=== PATIENT | female | born 1985 | race Caucasian/White ===

== ENCOUNTER 2021-02-16 05:40 | Inpatient (IN) ==
[2021-02-16] MEDS ORDERED: Artificial Tears SOLN 15 ML BOTTLE BOTH EYES PRN ×2 (10:41→12:15)
[2021-02-16] MEDS: Dexmedetomidine HCl 400 MCG/100 ML MLS IVC SCH ×3 (10:59→21:43)
[2021-02-16] MEDS: FentaNYL (PF) 1,000 MCG/100 ML IV.SOLN IVC SCH ×2 (10:59→19:22)
[2021-02-16] MEDS ORDERED: Perflutren Lipid Microsphere 1.3 ML in 0.9 % Sodium Chloride 8.7 ML IVP PRN (12:15)
[2021-02-16] MEDS ORDERED: Naloxone 0.4 MG/ML INJ IVP PRN (12:15)
[2021-02-16] MEDS ORDERED: Albuterol 2.5 MG/3 ML NEBULIZER IH PRN (12:23)
[2021-02-16 12:26] LABS: ABG Base Excess 2 mEq/L (-2 to 3); ABG HCO3 29 mEq/L (21-27); ABG Oxygen Saturation 96 % (95-98); ABG PCO2 57 mmHg (35-45); ABG PH 7.32 pH Units (7.32-7.45); ABG PO2 89 mmHg (85-104); ABG TCO2 31 mEq/L (20-26); Blood Gas VT 450 cc
[2021-02-16] MEDS: Artificial Tears SOLN 15 ML BOTTLE BOTH EYES SCH ×7 (13:31→23:39)
[2021-02-16 13:49] LABS: Basophils % 0.2 %; Eosinophils % 0.1 %; Hematocrit 39.9 % (35.3-44.9); Hemoglobin 13.3 g/dL (11.5-15.4); Immature Granulocytes % 0.4 % (0-4); Lymphocytes # 1.7 K/mcL (0.6-4.6); Lymphocytes % 10.3 %; Mean Corpuscular HGB Conc 33.3 g/dL (31.6-35.5); Mean Corpuscular Hemoglobin 30.6 pg (28.0-33.3); Mean Corpuscular Volume 91.9 fL (83.0-100.0); Mean Platelet Volume 9.5 fL (9.4-12.4); Monocytes # 1.3 K/mcL (0.0-1.3); Monocytes % 7.8 %; Neutrophils # 13.1 K/mcL (1.6-8.9); Platelet Count 245 K/mcL (140-400); Red Blood Count 4.34 M/mcL (3.82-4.97); Red Cell Distribution Width 12.7 % (11.5-14.5); Segmented Neutrophils % 81.2 %; White Blood Count 16.2 K/mcL (4.3-11.1)
[2021-02-16] MEDS: Norepinephrine 4 MG/254 ML IV.SOLN IVC SCH ×2 (14:13→23:39)
[2021-02-16 14:17] LABS: Alanine Aminotransferase 116 Units/L (7-52); Albumin 3.5 g/dL (3.5-5.7); Albumin/Globulin Ratio 1.5 (1.1-2.2); Alkaline Phosphatase 59 Units/L (34-104); Aspartate Amino Transferase 57 Units/L (13-39); BUN/Creatinine Ratio 17 (6-26); Bilirubin,Direct 0.3 mg/dL (0.0-0.2); Bilirubin,Indirect 0.5 mg/dL (0.0-1.0); Bilirubin,Total 0.8 mg/dL (0.3-1.0); Blood Urea Nitrogen 14 mg/dL (6-20); Calcium 7.9 mg/dL (8.6-10.3); Carbon Dioxide 26 mEq/L (23-29); Chloride 103 mEq/L (98-107); Globulin 2.4 g/dL (2.4-3.5); Glucose 177 mg/dL (70-105); Magnesium 1.7 mg/dL (1.6-2.6); Osmolality,Calculated 285 (280-300); Phosphorous 2.4 mg/dL (2.7-4.5); Sodium 135 mEq/L (136-145); Total Protein 5.9 g/dL (6.4-8.9); Troponin I < 0.03 ng/mL (< 0.04); eGFR For African Americans > 60 (> 60); eGFR For Non-African Americans > 60 (> 60)
[2021-02-16] MEDS ORDERED: *HR* Etomidate 20 MG/10 ML AMPUL IVP ONE (14:22)
[2021-02-16] MEDS ORDERED: *HR* Midazolam HCl 5 MG/5 ML VIAL IVP ONE (14:22)
[2021-02-16] MEDS: Ipratropium/Albuterol Neb 3 ML IH SCH ×3 (15:56→23:19)
[2021-02-16] MEDS: *HR* Heparin 5,000 UNIT/ML VIAL SQ SCH ×2 (16:14→23:38)
[2021-02-16] MEDS: Piperacillin/Tazobactam 3.375 GM in 0.9 % Sodium Chloride Mini Bag 100 ML IVPB SCH ×2 (16:14→23:38)
[2021-02-16] MEDS ORDERED: Vancomycin 2,000 MG/520 ML IV.SOLN IVPB ONE (17:00)
[2021-02-16] MEDS ORDERED: Dextrose Gel 15 GM/37.5 ML TUBE PO PRN ×2 (17:06)
[2021-02-16] MEDS ORDERED: *HR* Dextrose 50 % in Water (Syg) 50 ML SYRINGE IVP PRN (17:06)
[2021-02-16] MEDS ORDERED: D5% in Water 1,000 ML IVC PRN (17:06)
[2021-02-16] MEDS: Insulin LISPRO 300 UNITS/3 ML VIAL SUBQ SCH ×2 (18:34→23:40)
[2021-02-16] MEDS: Chlorhexidine Rinse 15 ML MOUTHWASH MM SCH ×2 (20:05→20:43)
[2021-02-17] MEDS: Dexmedetomidine HCl 400 MCG/100 ML MLS IVC SCH ×4 (02:49→22:01)
[2021-02-17] MEDS: FentaNYL (PF) 1,000 MCG/100 ML IV.SOLN IVC SCH ×2 (03:22→11:54)
[2021-02-17] MEDS: Artificial Tears SOLN 15 ML BOTTLE BOTH EYES SCH ×10 (03:24→23:25)
[2021-02-17 03:29] LABS: Basophils # 0.1 K/mcL (0.0-0.2); Basophils % 0.3 %; Eosinophils # 0.3 K/mcL (0.0-0.6); Eosinophils % 1.7 %; Hematocrit 38.9 % (35.3-44.9); Hemoglobin 13.1 g/dL (11.5-15.4); Immature Granulocytes % 0.4 % (0-4); Lymphocytes # 2.4 K/mcL (0.6-4.6); Lymphocytes % 15.8 %; Mean Corpuscular HGB Conc 33.7 g/dL (31.6-35.5); Mean Corpuscular Hemoglobin 30.5 pg (28.0-33.3); Mean Corpuscular Volume 90.5 fL (83.0-100.0); Mean Platelet Volume 9.4 fL (9.4-12.4); Monocytes # 1.6 K/mcL (0.0-1.3); Monocytes % 10.3 %; Neutrophils # 10.7 K/mcL (1.6-8.9); Platelet Count 254 K/mcL (140-400); Red Cell Distribution Width 12.9 % (11.5-14.5); Segmented Neutrophils % 71.5 %
[2021-02-17 03:47] LABS: Albumin 3.5 g/dL (3.5-5.7); Albumin/Globulin Ratio 1.4 (1.1-2.2); Bilirubin,Direct 0.6 mg/dL (0.0-0.2); Bilirubin,Indirect 0.6 mg/dL (0.0-1.0); Bilirubin,Total 1.2 mg/dL (0.3-1.0); Globulin 2.5 g/dL (2.4-3.5)
[2021-02-17] MEDS: Ipratropium/Albuterol Neb 3 ML IH SCH ×6 (03:48→23:43)
[2021-02-17 03:49] LABS: BUN/Creatinine Ratio 21 (6-26); Blood Urea Nitrogen 12 mg/dL (6-20); Calcium 8.1 mg/dL (8.6-10.3); Carbon Dioxide 28 mEq/L (23-29); Chloride 103 mEq/L (98-107); Glucose 165 mg/dL (70-105); Osmolality,Calculated 285 (280-300); Potassium 3.6 mEq/L (3.5-5.1); Sodium 136 mEq/L (136-145); eGFR For African Americans > 60 (> 60); eGFR For Non-African Americans > 60 (> 60)
[2021-02-17 03:50] LABS: Troponin I < 0.03 ng/mL (< 0.04)
[2021-02-17 04:05] LABS: ABG Base Excess 2 mEq/L (-2 to 3); ABG HCO3 28 mEq/L (21-27); ABG Oxygen Saturation 87 % (95-98); ABG PCO2 48 mmHg (35-45); ABG PH 7.38 pH Units (7.32-7.45); ABG PO2 55 mmHg (85-104); ABG TCO2 30 mEq/L (20-26); Blood Gas Modality ASSIST CONTROL; Blood Gas VT 450 cc
[2021-02-17] MEDS: Insulin LISPRO 300 UNITS/3 ML VIAL SUBQ SCH ×4 (04:58→23:35)
[2021-02-17] MEDS ORDERED: Vancomycin 1,750 MG/517.5 ML IV.SOLN IVPB SCH (05:00)
[2021-02-17] MEDS: Norepinephrine 4 MG/254 ML IV.SOLN IVC SCH ×3 (05:46→23:24)
[2021-02-17] MEDS: Acetaminophen 325 MG TABLET PO PRN (06:08)
[2021-02-17] MEDS: *HR* Heparin 5,000 UNIT/ML VIAL SQ SCH ×3 (08:01→23:29)
[2021-02-17] MEDS: Chlorhexidine Rinse 15 ML MOUTHWASH MM SCH ×3 (08:02→20:00)
[2021-02-17] MEDS: Piperacillin/Tazobactam 3.375 GM in 0.9 % Sodium Chloride Mini Bag 100 ML IVPB SCH ×3 (08:02→23:32)
[2021-02-17] MEDS: Pantoprazole 40 MG VIAL IVP SCH (08:03)
[2021-02-17] MEDS: Furosemide 40 MG/4 ML VIAL IVP SCH ×2 (14:36→20:00)
[2021-02-17] MEDS: Albumin 25% 25gram/100mL 25 GM/100 ML IV.SOLN IVPB SCH (17:29)
[2021-02-18] MEDS: FentaNYL (PF) 1,000 MCG/100 ML IV.SOLN IVC SCH ×4 (00:06→23:43)
[2021-02-18 03:37] LABS: Basophils % 0.4 %; Eosinophils # 0.3 K/mcL (0.0-0.6); Eosinophils % 3.1 %; Hematocrit 34.7 % (35.3-44.9); Hemoglobin 11.9 g/dL (11.5-15.4); Immature Granulocytes % 0.3 % (0-4); Lymphocytes # 2.5 K/mcL (0.6-4.6); Lymphocytes % 24.3 %; Mean Corpuscular HGB Conc 34.3 g/dL (31.6-35.5); Mean Corpuscular Hemoglobin 31.1 pg (28.0-33.3); Mean Corpuscular Volume 90.6 fL (83.0-100.0); Mean Platelet Volume 9.6 fL (9.4-12.4); Monocytes % 9.9 %; Neutrophils # 6.5 K/mcL (1.6-8.9); Platelet Count 212 K/mcL (140-400); Red Blood Count 3.83 M/mcL (3.82-4.97); Red Cell Distribution Width 12.7 % (11.5-14.5); White Blood Count 10.4 K/mcL (4.3-11.1)
[2021-02-18] MEDS: Artificial Tears SOLN 15 ML BOTTLE BOTH EYES SCH ×6 (03:38→23:54)
[2021-02-18] MEDS: Ipratropium/Albuterol Neb 3 ML IH SCH ×5 (03:58→20:08)
[2021-02-18 04:13] LABS: Alanine Aminotransferase 77 Units/L (7-52); Albumin 3.6 g/dL (3.5-5.7); Albumin/Globulin Ratio 1.4 (1.1-2.2); Alkaline Phosphatase 48 Units/L (34-104); Aspartate Amino Transferase 50 Units/L (13-39); BUN/Creatinine Ratio 18 (6-26); Bilirubin,Direct 0.8 mg/dL (0.0-0.2); Bilirubin,Indirect 0.7 mg/dL (0.0-1.0); Bilirubin,Total 1.5 mg/dL (0.3-1.0); Blood Urea Nitrogen 12 mg/dL (6-20); Calcium 8.2 mg/dL (8.6-10.3); Carbon Dioxide 30 mEq/L (23-29); Chloride 98 mEq/L (98-107); Globulin 2.6 g/dL (2.4-3.5); Glucose 139 mg/dL (70-105); Osmolality,Calculated 286 (280-300); Sodium 137 mEq/L (136-145); Total Protein 6.2 g/dL (6.4-8.9); eGFR For African Americans > 60 (> 60); eGFR For Non-African Americans > 60 (> 60)
[2021-02-18] MEDS: Dexmedetomidine HCl 400 MCG/100 ML MLS IVC SCH ×4 (04:30→23:51)
[2021-02-18 04:49] LABS: ABG Base Excess 5 mEq/L (-2 to 3); ABG HCO3 30 mEq/L (21-27); ABG Oxygen Saturation 90 % (95-98); ABG PCO2 46 mmHg (35-45); ABG PH 7.42 pH Units (7.32-7.45); ABG PO2 58 mmHg (85-104); ABG TCO2 31 mEq/L (20-26); Blood Gas Modality ASSIST CONTROL; Blood Gas VT 450 cc
[2021-02-18] MEDS: Insulin LISPRO 300 UNITS/3 ML VIAL SUBQ SCH ×4 (05:32→23:55)
[2021-02-18] MEDS: Albumin 25% 25gram/100mL 25 GM/100 ML IV.SOLN IVPB SCH ×2 (05:45→17:17)
[2021-02-18] MEDS ORDERED: Potassium Chloride Elixir 20 MEQ/15 ML UDC GTUBE ONE (07:56)
[2021-02-18] MEDS: Piperacillin/Tazobactam 3.375 GM in 0.9 % Sodium Chloride Mini Bag 100 ML IVPB SCH ×3 (08:32→23:35)
[2021-02-18] MEDS: Furosemide 40 MG/4 ML VIAL IVP SCH ×3 (08:33→19:57)
[2021-02-18] MEDS: Pantoprazole 40 MG VIAL IVP SCH (08:33)
[2021-02-18] MEDS: Chlorhexidine Rinse 15 ML MOUTHWASH MM SCH ×2 (08:33→19:56)
[2021-02-18] MEDS: *HR* Heparin 5,000 UNIT/ML VIAL SQ SCH ×3 (08:33→23:52)
[2021-02-18] MEDS: Norepinephrine 4 MG/254 ML IV.SOLN IVC SCH ×3 (08:45→23:55)
[2021-02-18] MEDS ORDERED: Furosemide 40 MG/4 ML VIAL IVP SCH (10:00)
[2021-02-18] MEDS: Venlafaxine XR (24 HR) 75 MG CAP.ER.24H PO SCH (13:24)
[2021-02-18] MEDS: QUEtiapine Fumarate 100 MG TABLET PO SCH (19:57)
[2021-02-18 21:12] LABS: Magnesium 1.7 mg/dL (1.6-2.6); Potassium 3.5 mEq/L (3.5-5.1)
[2021-02-19] MEDS: Ipratropium/Albuterol Neb 3 ML IH SCH ×7 (00:06→23:46)
[2021-02-19 03:59] LABS: Basophils % 0.4 %; Eosinophils # 0.3 K/mcL (0.0-0.6); Hemoglobin 10.8 g/dL (11.5-15.4); Immature Granulocytes % 0.5 % (0-4); Lymphocytes # 1.6 K/mcL (0.6-4.6); Lymphocytes % 19.9 %; Mean Corpuscular HGB Conc 33.8 g/dL (31.6-35.5); Mean Corpuscular Hemoglobin 30.9 pg (28.0-33.3); Mean Corpuscular Volume 91.7 fL (83.0-100.0); Mean Platelet Volume 9.8 fL (9.4-12.4); Monocytes # 0.9 K/mcL (0.0-1.3); Monocytes % 10.7 %; Neutrophils # 5.2 K/mcL (1.6-8.9); Platelet Count 198 K/mcL (140-400); Red Blood Count 3.49 M/mcL (3.82-4.97); Red Cell Distribution Width 12.9 % (11.5-14.5); Segmented Neutrophils % 64.5 %
[2021-02-19 04:02] LABS: VBG Ionized Calcium 1.07 mmol/L (1.15-1.35)
[2021-02-19] MEDS: Artificial Tears SOLN 15 ML BOTTLE BOTH EYES SCH ×6 (04:11→23:52)
[2021-02-19 04:21] LABS: Alanine Aminotransferase 60 Units/L (7-52); Albumin 3.9 g/dL (3.5-5.7); Albumin/Globulin Ratio 1.5 (1.1-2.2); Alkaline Phosphatase 41 Units/L (34-104); Aspartate Amino Transferase 39 Units/L (13-39); BUN/Creatinine Ratio 21 (6-26); Bilirubin,Direct 1.3 mg/dL (0.0-0.2); Bilirubin,Indirect 0.8 mg/dL (0.0-1.0); Bilirubin,Total 2.1 mg/dL (0.3-1.0); Blood Urea Nitrogen 13 mg/dL (6-20); Calcium 8.5 mg/dL (8.6-10.3); Carbon Dioxide 30 mEq/L (23-29); Chloride 99 mEq/L (98-107); Globulin 2.6 g/dL (2.4-3.5); Glucose 130 mg/dL (70-105); Magnesium 1.8 mg/dL (1.6-2.6); Osmolality,Calculated 290 (280-300); Potassium 3.3 mEq/L (3.5-5.1); Sodium 139 mEq/L (136-145); Total Protein 6.5 g/dL (6.4-8.9); eGFR For African Americans > 60 (> 60); eGFR For Non-African Americans > 60 (> 60)
[2021-02-19] MEDS: Dexmedetomidine HCl 400 MCG/100 ML MLS IVC SCH ×3 (05:15→21:06)
[2021-02-19] MEDS: Albumin 25% 25gram/100mL 25 GM/100 ML IV.SOLN IVPB SCH ×2 (05:15→18:27)
[2021-02-19] MEDS: FentaNYL (PF) 1,000 MCG/100 ML IV.SOLN IVC SCH (05:30)
[2021-02-19] MEDS: Potassium Chloride 40 MEQ/200 ML BAG IVPB PRN ×2 (05:32→16:35)
[2021-02-19 05:36] LABS: ABG Base Excess 4 mEq/L (-2 to 3); ABG HCO3 28 mEq/L (21-27); ABG Oxygen Saturation 91 % (95-98); ABG PCO2 41 mmHg (35-45); ABG PH 7.45 pH Units (7.32-7.45); ABG PO2 58 mmHg (85-104); ABG TCO2 30 mEq/L (20-26); Blood Gas Modality ASSIST CONTROL; Blood Gas VT 450 cc
[2021-02-19] MEDS: Calcium Gluconate 1gm/50mL 1 GM/50 ML BAG IVPB PRN ×2 (05:53→14:48)
[2021-02-19] MEDS: Insulin LISPRO 300 UNITS/3 ML VIAL SUBQ SCH ×4 (05:57→23:55)
[2021-02-19 06:24] LABS: Phosphorous 4.5 mg/dL (2.7-4.5)
[2021-02-19] MEDS: *HR* Heparin 5,000 UNIT/ML VIAL SQ SCH ×3 (07:51→23:52)
[2021-02-19] MEDS: Piperacillin/Tazobactam 3.375 GM in 0.9 % Sodium Chloride Mini Bag 100 ML IVPB SCH ×3 (07:52→23:56)
[2021-02-19] MEDS: Venlafaxine XR (24 HR) 75 MG CAP.ER.24H PO SCH (07:52)
[2021-02-19] MEDS: Furosemide 40 MG/4 ML VIAL IVP SCH ×2 (07:53→21:14)
[2021-02-19] MEDS: Pantoprazole 40 MG VIAL IVP SCH (07:53)
[2021-02-19] MEDS: Chlorhexidine Rinse 15 ML MOUTHWASH MM SCH ×2 (07:53→21:14)
[2021-02-19] MEDS: Norepinephrine 4 MG/254 ML IV.SOLN IVC SCH ×2 (07:54→16:21)
[2021-02-19 13:51] LABS: VBG Ionized Calcium 1.07 mmol/L (1.15-1.35)
[2021-02-19 14:03] LABS: Magnesium 2.1 mg/dL (1.6-2.6); Potassium 3.3 mEq/L (3.5-5.1)
[2021-02-19] MEDS: QUEtiapine Fumarate 100 MG TABLET PO SCH (21:13)
[2021-02-20 01:15] LABS: VBG Ionized Calcium 1.07 mmol/L (1.15-1.35)
[2021-02-20] MEDS: Potassium Chloride 40 MEQ/200 ML BAG IVPB PRN ×2 (02:54→12:22)
[2021-02-20] MEDS: Calcium Gluconate 1gm/50mL 1 GM/50 ML BAG IVPB PRN (02:55)
[2021-02-20] MEDS: Artificial Tears SOLN 15 ML BOTTLE BOTH EYES SCH ×6 (02:56→23:10)
[2021-02-20] MEDS: Norepinephrine 4 MG/254 ML IV.SOLN IVC SCH ×4 (02:56→23:11)
[2021-02-20] MEDS: Ipratropium/Albuterol Neb 3 ML IH SCH ×6 (03:11→23:50)
[2021-02-20 03:34] LABS: Basophils # 0.1 K/mcL (0.0-0.2); Basophils % 0.5 %; Eosinophils # 0.1 K/mcL (0.0-0.6); Eosinophils % 1.4 %; Hematocrit 34.3 % (35.3-44.9); Hemoglobin 11.2 g/dL (11.5-15.4); Immature Granulocytes % 0.6 % (0-4); Lymphocytes # 1.2 K/mcL (0.6-4.6); Lymphocytes % 12.4 %; Mean Corpuscular HGB Conc 32.7 g/dL (31.6-35.5); Mean Corpuscular Hemoglobin 30.4 pg (28.0-33.3); Mean Platelet Volume 9.8 fL (9.4-12.4); Monocytes % 10.9 %; Nucleated Red Blood Cells 0.4 /100 WBC (0); Platelet Count 239 K/mcL (140-400); Red Blood Count 3.69 M/mcL (3.82-4.97); Red Cell Distribution Width 13.2 % (11.5-14.5); Segmented Neutrophils % 74.2 %; White Blood Count 9.4 K/mcL (4.3-11.1)
[2021-02-20 03:49] LABS: Alanine Aminotransferase 60 Units/L (7-52); Albumin 4.6 g/dL (3.5-5.7); Albumin/Globulin Ratio 1.7 (1.1-2.2); Alkaline Phosphatase 44 Units/L (34-104); Aspartate Amino Transferase 37 Units/L (13-39); BUN/Creatinine Ratio 24 (6-26); Bilirubin,Direct 0.9 mg/dL (0.0-0.2); Bilirubin,Indirect 0.7 mg/dL (0.0-1.0); Bilirubin,Total 1.6 mg/dL (0.3-1.0); Blood Urea Nitrogen 17 mg/dL (6-20); Calcium 9.3 mg/dL (8.6-10.3); Carbon Dioxide 30 mEq/L (23-29); Chloride 99 mEq/L (98-107); Globulin 2.7 g/dL (2.4-3.5); Glucose 140 mg/dL (70-105); Osmolality,Calculated 294 (280-300); Potassium 3.4 mEq/L (3.5-5.1); Sodium 140 mEq/L (136-145); Total Protein 7.3 g/dL (6.4-8.9); eGFR For African Americans > 60 (> 60); eGFR For Non-African Americans > 60 (> 60)
[2021-02-20] MEDS: Dexmedetomidine HCl 400 MCG/100 ML MLS IVC SCH ×2 (04:10→14:10)
[2021-02-20 04:41] LABS: ABG Base Excess 5 mEq/L (-2 to 3); ABG HCO3 30 mEq/L (21-27); ABG Oxygen Saturation 94 % (95-98); ABG PCO2 47 mmHg (35-45); ABG PH 7.42 pH Units (7.32-7.45); ABG PO2 71 mmHg (85-104); ABG TCO2 32 mEq/L (20-26); Blood Gas Modality ASSIST CONTROL; Blood Gas VT 450 cc
[2021-02-20 04:57] LABS: Magnesium 2.6 mg/dL (1.6-2.6); Phosphorous 3.2 mg/dL (2.7-4.5)
[2021-02-20] MEDS: Albumin 25% 25gram/100mL 25 GM/100 ML IV.SOLN IVPB SCH ×2 (06:14→17:14)
[2021-02-20] MEDS: Insulin LISPRO 300 UNITS/3 ML VIAL SUBQ SCH ×4 (06:15→23:10)
[2021-02-20] MEDS: *HR* Heparin 5,000 UNIT/ML VIAL SQ SCH ×3 (07:47→23:17)
[2021-02-20] MEDS: Piperacillin/Tazobactam 3.375 GM in 0.9 % Sodium Chloride Mini Bag 100 ML IVPB SCH ×3 (07:48→23:17)
[2021-02-20] MEDS: Chlorhexidine Rinse 15 ML MOUTHWASH MM SCH ×2 (07:48→19:21)
[2021-02-20] MEDS: Venlafaxine XR (24 HR) 75 MG CAP.ER.24H PO SCH (07:48)
[2021-02-20] MEDS: Furosemide 40 MG/4 ML VIAL IVP SCH (07:48)
[2021-02-20] MEDS: Pantoprazole 40 MG VIAL IVP SCH (07:49)
[2021-02-20 11:07] LABS: VBG Ionized Calcium 1.14 mmol/L (1.15-1.35)
[2021-02-20] MEDS: QUEtiapine Fumarate 100 MG TABLET PO SCH (19:22)
[2021-02-20] MEDS: Scopolamine Patch 1.5 MG PATCH.TD72 TD SCH (19:40)
[2021-02-21] MEDS: Dexmedetomidine HCl 400 MCG/100 ML MLS IVC SCH (00:20)
[2021-02-21 03:27] LABS: VBG Ionized Calcium 1.14 mmol/L (1.15-1.35)
[2021-02-21 03:34] LABS: Basophils % 0.2 %; Eosinophils % 0.3 %; Hematocrit 35.1 % (35.3-44.9); Hemoglobin 11.2 g/dL (11.5-15.4); Immature Granulocytes % 0.6 % (0-4); Lymphocytes # 1.1 K/mcL (0.6-4.6); Lymphocytes % 9.3 %; Mean Corpuscular HGB Conc 31.9 g/dL (31.6-35.5); Mean Corpuscular Hemoglobin 30.4 pg (28.0-33.3); Mean Corpuscular Volume 95.1 fL (83.0-100.0); Mean Platelet Volume 9.7 fL (9.4-12.4); Monocytes # 1.3 K/mcL (0.0-1.3); Monocytes % 10.3 %; Neutrophils # 9.8 K/mcL (1.6-8.9); Nucleated Red Blood Cells 0.2 /100 WBC (0); Platelet Count 234 K/mcL (140-400); Red Blood Count 3.69 M/mcL (3.82-4.97); Red Cell Distribution Width 13.2 % (11.5-14.5); Segmented Neutrophils % 79.3 %; White Blood Count 12.3 K/mcL (4.3-11.1)
[2021-02-21 03:55] LABS: Alanine Aminotransferase 52 Units/L (7-52); Albumin 4.9 g/dL (3.5-5.7); Albumin/Globulin Ratio 1.7 (1.1-2.2); Alkaline Phosphatase 39 Units/L (34-104); Aspartate Amino Transferase 28 Units/L (13-39); BUN/Creatinine Ratio 39 (6-26); Bilirubin,Direct 0.6 mg/dL (0.0-0.2); Bilirubin,Indirect 0.7 mg/dL (0.0-1.0); Bilirubin,Total 1.3 mg/dL (0.3-1.0); Blood Urea Nitrogen 26 mg/dL (6-20); Calcium 9.7 mg/dL (8.6-10.3); Carbon Dioxide 26 mEq/L (23-29); Chloride 103 mEq/L (98-107); Globulin 2.9 g/dL (2.4-3.5); Glucose 152 mg/dL (70-105); Magnesium 2.5 mg/dL (1.6-2.6); Osmolality,Calculated 302 (280-300); Potassium 4.1 mEq/L (3.5-5.1); Sodium 142 mEq/L (136-145); Total Protein 7.8 g/dL (6.4-8.9); eGFR For African Americans > 60 (> 60); eGFR For Non-African Americans > 60 (> 60)
[2021-02-21] MEDS: Artificial Tears SOLN 15 ML BOTTLE BOTH EYES SCH ×6 (03:58→23:06)
[2021-02-21] MEDS: Ipratropium/Albuterol Neb 3 ML IH SCH ×6 (04:14→23:19)
[2021-02-21 05:05] LABS: ABG Base Excess 4 mEq/L (-2 to 3); ABG HCO3 27 mEq/L (21-27); ABG Oxygen Saturation 94 % (95-98); ABG PCO2 33 mmHg (35-45); ABG PH 7.52 pH Units (7.32-7.45); ABG PO2 64 mmHg (85-104); ABG TCO2 28 mEq/L (20-26); Blood Gas Modality ASSIST CONTROL; Blood Gas VT 450 cc
[2021-02-21] MEDS: Insulin LISPRO 300 UNITS/3 ML VIAL SUBQ SCH ×4 (05:05→23:29)
[2021-02-21] MEDS: Albumin 25% 25gram/100mL 25 GM/100 ML IV.SOLN IVPB SCH (05:08)
[2021-02-21] MEDS: Piperacillin/Tazobactam 3.375 GM in 0.9 % Sodium Chloride Mini Bag 100 ML IVPB SCH ×3 (08:52→23:06)
[2021-02-21] MEDS: Pantoprazole 40 MG VIAL IVP SCH (08:52)
[2021-02-21] MEDS: *HR* Heparin 5,000 UNIT/ML VIAL SQ SCH ×3 (08:52→23:05)
[2021-02-21] MEDS: Chlorhexidine Rinse 15 ML MOUTHWASH MM SCH ×2 (08:53→19:36)
[2021-02-21] MEDS: Venlafaxine XR (24 HR) 75 MG CAP.ER.24H PO SCH (08:53)
[2021-02-21] MEDS: Ringers Solution, Lactated 1,000 ML IVC SCH ×2 (10:56→22:39)
[2021-02-21 11:47] LABS: Bacteria,Urine Few per hpf (None-Few); Bilirubin,Urine Small (Negative); Blood,Urine Moderate (Negative); Clarity,Urine Turbid (Clear); Color,Urine Yellow (Yellow); Glucose,Urine (UA) Normal (Normal); Ketones,Urine 40 mg/dL (Negative); Leukocyte Esterase,Urine Negative (Negative); Mucus,Urine Few per lpf (None-Few); Nitrite,Urine Negative (Negative); PH,Urine 6.5 pH Units (5.0-8.0); Protein,Urine >=300 mg/dL (Neg-Trace); RBC,Urine 30-50 per hpf (0-3); Specific Gravity,Urine > 1.030 (1.010-1.025); Squamous Epithelial Cell,Urine Few per hpf (None-Few); WBC,Urine 0-3 per hpf (0-3)
[2021-02-21] MEDS: QUEtiapine Fumarate 100 MG TABLET PO SCH (19:36)
[2021-02-21] MEDS: Sennosides/Docusate Sodium TABLET PO SCH (19:36)
[2021-02-21] MEDS: FentaNYL (PF) 1,000 MCG/100 ML IV.SOLN IVC SCH (21:12)
[2021-02-21] MEDS: Norepinephrine 4 MG/254 ML IV.SOLN IVC SCH ×2 (21:21→21:22)
[2021-02-21] MEDS: Acetaminophen 325 MG TABLET PO PRN (23:54)
[2021-02-22] MEDS: Ringers Solution, Lactated 1,000 ML IVC SCH (00:33)
[2021-02-22 02:46] LABS: Basophils # 0.1 K/mcL (0.0-0.2); Basophils % 0.3 %; Eosinophils % 0.2 %; Hematocrit 34.5 % (35.3-44.9); Hemoglobin 10.9 g/dL (11.5-15.4); Immature Granulocytes % 1.4 % (0-4); Lymphocytes % 13.4 %; Mean Corpuscular HGB Conc 31.6 g/dL (31.6-35.5); Mean Corpuscular Hemoglobin 30.4 pg (28.0-33.3); Mean Corpuscular Volume 96.4 fL (83.0-100.0); Mean Platelet Volume 9.6 fL (9.4-12.4); Monocytes % 13.6 %; Neutrophils # 10.4 K/mcL (1.6-8.9); Nucleated Red Blood Cells 0.1 /100 WBC (0); Platelet Count 242 K/mcL (140-400); Red Blood Count 3.58 M/mcL (3.82-4.97); Red Cell Distribution Width 13.4 % (11.5-14.5); Segmented Neutrophils % 71.1 %; White Blood Count 14.6 K/mcL (4.3-11.1)
[2021-02-22 02:56] LABS: Albumin 4.5 g/dL (3.5-5.7); Albumin/Globulin Ratio 1.7 (1.1-2.2); Bilirubin,Direct 0.5 mg/dL (0.0-0.2); Bilirubin,Indirect 0.7 mg/dL (0.0-1.0); Bilirubin,Total 1.2 mg/dL (0.3-1.0); Globulin 2.7 g/dL (2.4-3.5); Total Protein 7.2 g/dL (6.4-8.9)
[2021-02-22 02:57] LABS: BUN/Creatinine Ratio 38 (6-26); Blood Urea Nitrogen 25 mg/dL (6-20); Calcium 9.3 mg/dL (8.6-10.3); Carbon Dioxide 28 mEq/L (23-29); Chloride 107 mEq/L (98-107); Glucose 148 mg/dL (70-105); Osmolality,Calculated 301 (280-300); Potassium 3.3 mEq/L (3.5-5.1); Sodium 142 mEq/L (136-145); eGFR For African Americans > 60 (> 60); eGFR For Non-African Americans > 60 (> 60)
[2021-02-22] MEDS: Artificial Tears SOLN 15 ML BOTTLE BOTH EYES SCH ×6 (03:00→23:41)
[2021-02-22] MEDS: Potassium Chloride 40 MEQ/200 ML BAG IVPB PRN ×3 (03:24→14:08)
[2021-02-22] MEDS: Ipratropium/Albuterol Neb 3 ML IH SCH ×6 (03:30→23:33)
[2021-02-22] MEDS: Norepinephrine 4 MG/254 ML IV.SOLN IVC SCH ×3 (03:58→19:43)
[2021-02-22] MEDS ORDERED: Potassium Chloride Elixir 20 MEQ/15 ML UDC GTUBE ONE (04:55)
[2021-02-22 05:04] LABS: ABG Base Excess 4 mEq/L (-2 to 3); ABG HCO3 29 mEq/L (21-27); ABG Oxygen Saturation 96 % (95-98); ABG PCO2 44 mmHg (35-45); ABG PH 7.43 pH Units (7.32-7.45); ABG PO2 83 mmHg (85-104); ABG TCO2 30 mEq/L (20-26); Blood Gas VT 450 cc
[2021-02-22] MEDS: Insulin LISPRO 300 UNITS/3 ML VIAL SUBQ SCH ×3 (05:26→18:05)
[2021-02-22] MEDS: FentaNYL (PF) 1,000 MCG/100 ML IV.SOLN IVC SCH ×3 (09:01→23:40)
[2021-02-22] MEDS: Chlorhexidine Rinse 15 ML MOUTHWASH MM SCH ×2 (09:02→19:42)
[2021-02-22] MEDS: Piperacillin/Tazobactam 3.375 GM in 0.9 % Sodium Chloride Mini Bag 100 ML IVPB SCH ×2 (09:03→18:03)
[2021-02-22] MEDS: Pantoprazole 40 MG VIAL IVP SCH (09:03)
[2021-02-22] MEDS: *HR* Heparin 5,000 UNIT/ML VIAL SQ SCH ×3 (09:03→23:41)
[2021-02-22] MEDS: Venlafaxine XR (24 HR) 75 MG CAP.ER.24H PO SCH (09:04)
[2021-02-22] MEDS: Sennosides/Docusate Sodium TABLET PO SCH ×2 (09:04→19:42)
[2021-02-22] MEDS: Dexmedetomidine HCl 400 MCG/100 ML MLS IVC SCH ×3 (13:48→21:29)
[2021-02-22] MEDS: QUEtiapine Fumarate 100 MG TABLET PO SCH (19:42)
[2021-02-23 00:33] LABS: Magnesium 2.2 mg/dL (1.6-2.6)
[2021-02-23] MEDS: Insulin LISPRO 300 UNITS/3 ML VIAL SUBQ SCH ×5 (00:35→23:53)
[2021-02-23] MEDS: Ipratropium/Albuterol Neb 3 ML IH SCH ×6 (03:16→23:20)
[2021-02-23] MEDS: Artificial Tears SOLN 15 ML BOTTLE BOTH EYES SCH ×6 (03:21→23:40)
[2021-02-23] MEDS: Norepinephrine 4 MG/254 ML IV.SOLN IVC SCH ×2 (03:22→12:36)
[2021-02-23 04:03] LABS: ABG Base Excess 0 mEq/L (-2 to 3); ABG HCO3 27 mEq/L (21-27); ABG Oxygen Saturation 97 % (95-98); ABG PCO2 53 mmHg (35-45); ABG PH 7.32 pH Units (7.32-7.45); ABG PO2 101 mmHg (85-104); ABG TCO2 29 mEq/L (20-26); Blood Gas VT 450 cc
[2021-02-23 04:06] LABS: VBG Ionized Calcium 1.21 mmol/L (1.15-1.35)
[2021-02-23 04:11] LABS: Magnesium 2.1 mg/dL (1.6-2.6); Phosphorous 5.4 mg/dL (2.7-4.5)
[2021-02-23 04:13] LABS: Albumin 4.2 g/dL (3.5-5.7); Albumin/Globulin Ratio 1.5 (1.1-2.2); Bilirubin,Direct 0.2 mg/dL (0.0-0.2); Bilirubin,Indirect 0.5 mg/dL (0.0-1.0); Bilirubin,Total 0.7 mg/dL (0.3-1.0); Globulin 2.8 g/dL (2.4-3.5)
[2021-02-23 04:18] LABS: BUN/Creatinine Ratio 37 (6-26); Blood Urea Nitrogen 25 mg/dL (6-20); Carbon Dioxide 25 mEq/L (23-29); Chloride 109 mEq/L (98-107); Glucose 139 mg/dL (70-105); Osmolality,Calculated 305 (280-300); Potassium 4.1 mEq/L (3.5-5.1); Sodium 144 mEq/L (136-145); eGFR For African Americans > 60 (> 60); eGFR For Non-African Americans > 60 (> 60)
[2021-02-23] MEDS: FentaNYL (PF) 1,000 MCG/100 ML IV.SOLN IVC SCH ×4 (04:22→19:34)
[2021-02-23 04:24] LABS: Basophils # 0.1 K/mcL (0.0-0.2); Basophils % 0.5 %; Eosinophils # 0.1 K/mcL (0.0-0.6); Hematocrit 34.6 % (35.3-44.9); Hemoglobin 10.9 g/dL (11.5-15.4); Immature Granulocytes % 1.5 % (0-4); Lymphocytes # 2.1 K/mcL (0.6-4.6); Lymphocytes % 15.1 %; Mean Corpuscular HGB Conc 31.5 g/dL (31.6-35.5); Mean Corpuscular Hemoglobin 31.1 pg (28.0-33.3); Mean Corpuscular Volume 98.6 fL (83.0-100.0); Mean Platelet Volume 10.3 fL (9.4-12.4); Monocytes # 1.5 K/mcL (0.0-1.3); Monocytes % 10.9 %; Nucleated Red Blood Cells 0.2 /100 WBC (0); Platelet Count 242 K/mcL (140-400); Red Blood Count 3.51 M/mcL (3.82-4.97); Red Cell Distribution Width 13.2 % (11.5-14.5); White Blood Count 14.1 K/mcL (4.3-11.1)
[2021-02-23] MEDS: Chlorhexidine Rinse 15 ML MOUTHWASH MM SCH ×2 (08:36→19:33)
[2021-02-23] MEDS: Pantoprazole 40 MG VIAL IVP SCH (08:37)
[2021-02-23] MEDS: *HR* Heparin 5,000 UNIT/ML VIAL SQ SCH ×3 (08:37→23:40)
[2021-02-23] MEDS: Sennosides/Docusate Sodium TABLET PO SCH ×2 (08:38→19:34)
[2021-02-23] MEDS: Scopolamine Patch 1.5 MG PATCH.TD72 TD SCH (17:30)
[2021-02-23] MEDS: QUEtiapine Fumarate 100 MG TABLET PO SCH (19:34)
[2021-02-23] MEDS ORDERED: *HR* Midazolam HCl 2 MG/2 ML VIAL IVP ONE (22:11)
[2021-02-23] MEDS: Dexmedetomidine HCl 400 MCG/100 ML MLS IVC SCH (23:12)
[2021-02-24] MEDS: FentaNYL (PF) 1,000 MCG/100 ML IV.SOLN IVC SCH ×2 (00:57→03:50)
[2021-02-24] MEDS: Artificial Tears SOLN 15 ML BOTTLE BOTH EYES SCH ×5 (03:12→20:28)
[2021-02-24] MEDS: Ipratropium/Albuterol Neb 3 ML IH SCH ×6 (03:26→23:29)
[2021-02-24] MEDS ORDERED: Ringers Solution, Lactated 500 ML IVC ONE (03:47)
[2021-02-24 03:50] LABS: VBG Ionized Calcium 1.27 mmol/L (1.15-1.35)
[2021-02-24] MEDS: Dexmedetomidine HCl 400 MCG/100 ML MLS IVC SCH ×3 (03:51→18:32)
[2021-02-24 04:22] LABS: ABG Base Excess 3 mEq/L (-2 to 3); ABG HCO3 31 mEq/L (21-27); ABG Oxygen Saturation 92 % (95-98); ABG PCO2 67 mmHg (35-45); ABG PH 7.28 pH Units (7.32-7.45); ABG PO2 76 mmHg (85-104); ABG TCO2 33 mEq/L (20-26); Blood Gas VT 450 cc
[2021-02-24 04:59] LABS: BUN/Creatinine Ratio 32 (6-26); Blood Urea Nitrogen 23 mg/dL (6-20); Calcium 8.9 mg/dL (8.6-10.3); Carbon Dioxide 29 mEq/L (23-29); Chloride 107 mEq/L (98-107); Glucose 122 mg/dL (70-105); Magnesium 2.3 mg/dL (1.6-2.6); Osmolality,Calculated 299 (280-300); Phosphorous 5.9 mg/dL (2.7-4.5); Potassium 4.9 mEq/L (3.5-5.1); Sodium 142 mEq/L (136-145); eGFR For African Americans > 60 (> 60); eGFR For Non-African Americans > 60 (> 60)
[2021-02-24] MEDS: Insulin LISPRO 300 UNITS/3 ML VIAL SUBQ SCH ×3 (05:08→20:21)
[2021-02-24] MEDS: FentaNYL (PF) 2,500 MCG/50 ML IV.SOLN IVC SCH ×2 (08:13→19:50)
[2021-02-24] MEDS ORDERED: Vancomycin 1,750 MG in 0.9 % Sodium Chloride 250 ML IVPB SCH (09:00)
[2021-02-24] MEDS: Vancomycin 1,750 MG/517.5 ML IV.SOLN IVPB SCH ×2 (10:10→20:32)
[2021-02-24] MEDS: Sennosides/Docusate Sodium TABLET PO SCH ×2 (10:13→20:24)
[2021-02-24] MEDS: Pantoprazole 40 MG VIAL IVP SCH (10:13)
[2021-02-24] MEDS: Chlorhexidine Rinse 15 ML MOUTHWASH MM SCH ×2 (10:13→20:25)
[2021-02-24 10:17] LABS: Basophils % 0.3 %; Eosinophils # 0.4 K/mcL (0.0-0.6); Eosinophils % 3.8 %; Hematocrit 32.8 % (35.3-44.9); Hemoglobin 9.9 g/dL (11.5-15.4); Immature Granulocytes % 1.1 % (0-4); Lymphocytes # 1.8 K/mcL (0.6-4.6); Lymphocytes % 16.3 %; Mean Corpuscular HGB Conc 30.2 g/dL (31.6-35.5); Mean Corpuscular Volume 99.4 fL (83.0-100.0); Monocytes % 9.5 %; Neutrophils # 7.4 K/mcL (1.6-8.9); Nucleated Red Blood Cells 0.2 /100 WBC (0); Platelet Count 236 K/mcL (140-400); Red Cell Distribution Width 12.9 % (11.5-14.5); White Blood Count 10.7 K/mcL (4.3-11.1)
[2021-02-24] MEDS: *HR* Heparin 5,000 UNIT/ML VIAL SQ SCH ×2 (10:25→18:12)
[2021-02-24] MEDS: QUEtiapine Fumarate 100 MG TABLET PO SCH (20:25)
[2021-02-25] MEDS: Artificial Tears SOLN 15 ML BOTTLE BOTH EYES SCH ×7 (00:09→23:39)
[2021-02-25] MEDS: Insulin LISPRO 300 UNITS/3 ML VIAL SUBQ SCH ×5 (00:10→23:39)
[2021-02-25] MEDS: *HR* Heparin 5,000 UNIT/ML VIAL SQ SCH ×4 (00:12→23:40)
[2021-02-25] MEDS: Dexmedetomidine HCl 400 MCG/100 ML MLS IVC SCH ×4 (02:29→18:11)
[2021-02-25] MEDS: Ipratropium/Albuterol Neb 3 ML IH SCH ×6 (03:31→23:11)
[2021-02-25 04:27] LABS: Basophils % 0.4 %; Eosinophils # 0.4 K/mcL (0.0-0.6); Eosinophils % 3.9 %; Hematocrit 31.4 % (35.3-44.9); Immature Granulocytes % 1.1 % (0-4); Lymphocytes # 2.2 K/mcL (0.6-4.6); Mean Corpuscular HGB Conc 31.8 g/dL (31.6-35.5); Mean Corpuscular Hemoglobin 31.3 pg (28.0-33.3); Mean Corpuscular Volume 98.4 fL (83.0-100.0); Mean Platelet Volume 10.2 fL (9.4-12.4); Monocytes # 0.8 K/mcL (0.0-1.3); Monocytes % 8.1 %; Neutrophils # 6.7 K/mcL (1.6-8.9); Nucleated Red Blood Cells 0.2 /100 WBC (0); Platelet Count 225 K/mcL (140-400); Red Blood Count 3.19 M/mcL (3.82-4.97); Red Cell Distribution Width 12.9 % (11.5-14.5); Segmented Neutrophils % 65.5 %; White Blood Count 10.2 K/mcL (4.3-11.1)
[2021-02-25 04:45] LABS: BUN/Creatinine Ratio 41 (6-26); Blood Urea Nitrogen 23 mg/dL (6-20); Calcium 8.4 mg/dL (8.6-10.3); Carbon Dioxide 31 mEq/L (23-29); Chloride 104 mEq/L (98-107); Glucose 168 mg/dL (70-105); Osmolality,Calculated 300 (280-300); Potassium 3.7 mEq/L (3.5-5.1); Sodium 141 mEq/L (136-145); eGFR For African Americans > 60 (> 60); eGFR For Non-African Americans > 60 (> 60)
[2021-02-25 05:25] LABS: ABG Base Excess 3 mEq/L (-2 to 3); ABG HCO3 31 mEq/L (21-27); ABG Oxygen Saturation 95 % (95-98); ABG PCO2 67 mmHg (35-45); ABG PH 7.27 pH Units (7.32-7.45); ABG PO2 91 mmHg (85-104); ABG TCO2 33 mEq/L (20-26); Blood Gas Modality ASSIST CONTROL; Blood Gas VT 450 cc
[2021-02-25] MEDS: Potassium Chloride 40 MEQ/200 ML BAG IVPB PRN (05:39)
[2021-02-25] MEDS: Chlorhexidine Rinse 15 ML MOUTHWASH MM SCH ×2 (08:54→20:36)
[2021-02-25] MEDS: Pantoprazole 40 MG VIAL IVP SCH (08:54)
[2021-02-25] MEDS: Sennosides/Docusate Sodium TABLET PO SCH ×2 (08:55→20:37)
[2021-02-25] MEDS: FentaNYL (PF) 2,500 MCG/50 ML IV.SOLN IVC SCH ×2 (09:11→21:30)
[2021-02-25] MEDS: Vancomycin 1,750 MG/517.5 ML IV.SOLN IVPB SCH ×2 (10:51→22:05)
[2021-02-25] MEDS: QUEtiapine Fumarate 100 MG TABLET PO SCH (20:37)
[2021-02-26] MEDS: Dexmedetomidine HCl 400 MCG/100 ML MLS IVC SCH ×6 (00:30→22:59)
[2021-02-26] MEDS: Artificial Tears SOLN 15 ML BOTTLE BOTH EYES SCH ×6 (03:24→23:33)
[2021-02-26] MEDS: Ipratropium/Albuterol Neb 3 ML IH SCH ×6 (03:47→23:33)
[2021-02-26 04:31] LABS: Basophils % 0.2 %; Eosinophils # 0.2 K/mcL (0.0-0.6); Eosinophils % 1.9 %; Hematocrit 29.4 % (35.3-44.9); Hemoglobin 9.6 g/dL (11.5-15.4); Immature Granulocytes % 0.9 % (0-4); Lymphocytes # 1.8 K/mcL (0.6-4.6); Lymphocytes % 14.6 %; Mean Corpuscular HGB Conc 32.7 g/dL (31.6-35.5); Mean Corpuscular Hemoglobin 31.2 pg (28.0-33.3); Mean Corpuscular Volume 95.5 fL (83.0-100.0); Mean Platelet Volume 10.4 fL (9.4-12.4); Monocytes # 0.9 K/mcL (0.0-1.3); Monocytes % 7.8 %; Nucleated Red Blood Cells 0.2 /100 WBC (0); Platelet Count 235 K/mcL (140-400); Red Blood Count 3.08 M/mcL (3.82-4.97); Red Cell Distribution Width 12.7 % (11.5-14.5); Segmented Neutrophils % 74.6 %
[2021-02-26 04:35] LABS: VBG Ionized Calcium 1.12 mmol/L (1.15-1.35)
[2021-02-26 04:47] LABS: Alanine Aminotransferase 48 Units/L (7-52); Albumin 3.4 g/dL (3.5-5.7); Albumin/Globulin Ratio 1.3 (1.1-2.2); Alkaline Phosphatase 32 Units/L (34-104); Aspartate Amino Transferase 22 Units/L (13-39); BUN/Creatinine Ratio 34 (6-26); Bilirubin,Total 0.6 mg/dL (0.3-1.0); Blood Urea Nitrogen 17 mg/dL (6-20); Calcium 8.4 mg/dL (8.6-10.3); Carbon Dioxide 32 mEq/L (23-29); Chloride 101 mEq/L (98-107); Globulin 2.7 g/dL (2.4-3.5); Glucose 153 mg/dL (70-105); Magnesium 1.8 mg/dL (1.6-2.6); Osmolality,Calculated 293 (280-300); Phosphorous 2.8 mg/dL (2.7-4.5); Potassium 4.1 mEq/L (3.5-5.1); Sodium 139 mEq/L (136-145); Total Protein 6.1 g/dL (6.4-8.9); eGFR For African Americans > 60 (> 60); eGFR For Non-African Americans > 60 (> 60)
[2021-02-26 04:57] LABS: ABG Base Excess 8 mEq/L (-2 to 3); ABG HCO3 33 mEq/L (21-27); ABG Oxygen Saturation 91 % (95-98); ABG PCO2 48 mmHg (35-45); ABG PH 7.44 pH Units (7.32-7.45); ABG PO2 61 mmHg (85-104); ABG TCO2 34 mEq/L (20-26); Blood Gas VT 450 cc
[2021-02-26] MEDS: Insulin LISPRO 300 UNITS/3 ML VIAL SUBQ SCH ×4 (05:33→23:33)
[2021-02-26] MEDS: Chlorhexidine Rinse 15 ML MOUTHWASH MM SCH ×2 (07:56→20:27)
[2021-02-26] MEDS: Pantoprazole 40 MG VIAL IVP SCH (07:58)
[2021-02-26] MEDS: Sennosides/Docusate Sodium TABLET PO SCH ×2 (07:59→20:28)
[2021-02-26] MEDS: *HR* Heparin 5,000 UNIT/ML VIAL SQ SCH ×3 (07:59→23:27)
[2021-02-26 10:05] LABS: Magnesium 2.1 mg/dL (1.6-2.6); Phosphorous 2.9 mg/dL (2.7-4.5)
[2021-02-26] MEDS: FentaNYL (PF) 2,500 MCG/50 ML IV.SOLN IVC SCH ×2 (11:18→18:56)
[2021-02-26] MEDS ORDERED: *HR* LORazepam 2 MG/ML VIAL IVP PRN (15:23)
[2021-02-26] MEDS ORDERED: Ondansetron 4 MG/2 ML VIAL IVP PRN (15:23)
[2021-02-26] MEDS ORDERED: *HR* FentaNYL (PF) 100 MCG/2 ML VIAL IVP PRN (15:25)
[2021-02-26] MEDS ORDERED: 0.9 % Sodium Chloride 1,000 ML ONE (19:21)
[2021-02-26 20:20] LABS: Basophils % 0.3 %; Eosinophils # 0.3 K/mcL (0.0-0.6); Eosinophils % 3.2 %; Hematocrit 29.2 % (35.3-44.9); Hemoglobin 9.7 g/dL (11.5-15.4); Immature Granulocytes % 0.8 % (0-4); Lymphocytes # 1.8 K/mcL (0.6-4.6); Lymphocytes % 19.4 %; Mean Corpuscular HGB Conc 33.2 g/dL (31.6-35.5); Mean Corpuscular Hemoglobin 31.4 pg (28.0-33.3); Mean Corpuscular Volume 94.5 fL (83.0-100.0); Mean Platelet Volume 10.1 fL (9.4-12.4); Monocytes # 0.7 K/mcL (0.0-1.3); Monocytes % 7.3 %; Neutrophils # 6.6 K/mcL (1.6-8.9); Nucleated Red Blood Cells 0.3 /100 WBC (0); Platelet Count 221 K/mcL (140-400); Red Blood Count 3.09 M/mcL (3.82-4.97); White Blood Count 9.5 K/mcL (4.3-11.1)
[2021-02-26 20:28] LABS: INR 1.1; Prothrombin Time 12.7 Seconds (9.4-12.1)
[2021-02-26] MEDS: QUEtiapine Fumarate 100 MG TABLET PO SCH (20:28)
[2021-02-26] MEDS: Scopolamine Patch 1.5 MG PATCH.TD72 TD SCH (20:29)
[2021-02-26 20:30] LABS: Activated Partial Thrombo Time 27.9 Seconds (26.0-36.0)
[2021-02-26 20:34] LABS: Amorphous Sediment,Urine Few per hpf (None-Few); Bilirubin,Urine Negative (Negative); Blood,Urine Moderate (Negative); Clarity,Urine Ex.Turbid (Clear); Color,Urine Yellow (Yellow); Glucose,Urine (UA) Normal (Normal); Ketones,Urine Negative (Negative); Leukocyte Esterase,Urine Small (Negative); Mucus,Urine Few per lpf (None-Few); Nitrite,Urine Negative (Negative); PH,Urine 6.5 pH Units (5.0-8.0); Protein,Urine 30 mg/dL (Neg-Trace); RBC,Urine TNTC per hpf (0-3); Urobilinogen,Urine >=8.0 mg/dL (Normal); WBC,Urine 30-50 per hpf (0-3)
[2021-02-26 20:41] LABS: Alanine Aminotransferase 46 Units/L (7-52); Albumin 3.4 g/dL (3.5-5.7); Albumin/Globulin Ratio 1.3 (1.1-2.2); Alkaline Phosphatase 34 Units/L (34-104); Aspartate Amino Transferase 24 Units/L (13-39); BUN/Creatinine Ratio 36 (6-26); Bilirubin,Direct 0.3 mg/dL (0.0-0.2); Bilirubin,Indirect 0.3 mg/dL (0.0-1.0); Bilirubin,Total 0.6 mg/dL (0.3-1.0); Blood Urea Nitrogen 18 mg/dL (6-20); Calcium 8.5 mg/dL (8.6-10.3); Carbon Dioxide 33 mEq/L (23-29); Chloride 99 mEq/L (98-107); Gamma Glutamyl Transpeptidase 65 Units/L (7-64); Globulin 2.6 g/dL (2.4-3.5); Glucose 133 mg/dL (70-105); Lactate Dehydrogenase 166 Units/L (140-271); Magnesium 2.1 mg/dL (1.6-2.6); Osmolality,Calculated 288 (280-300); Phosphorous 3.3 mg/dL (2.7-4.5); Potassium 3.8 mEq/L (3.5-5.1); Sodium 137 mEq/L (136-145); eGFR For African Americans > 60 (> 60); eGFR For Non-African Americans > 60 (> 60)
[2021-02-26 20:59] LABS: ABG Base Excess 7 mEq/L (-2 to 3); ABG HCO3 32 mEq/L (21-27); ABG Oxygen Saturation 91 % (95-98); ABG PCO2 47 mmHg (35-45); ABG PH 7.43 pH Units (7.32-7.45); ABG PO2 60 mmHg (85-104); ABG TCO2 33 mEq/L (20-26); Blood Gas Modality AF; Blood Gas VT 450 cc
[2021-02-26] MEDS ORDERED: Isovue-370 500 ML BOTTLE IVP ONE (21:00)
[2021-02-26] MEDS ORDERED: Ringers Solution, Lactated 1,000 ML IVC ONE (22:04)
[2021-02-26] MEDS ORDERED: Furosemide 40 MG/4 ML VIAL IVP ONE (22:39)
[2021-02-27 00:36] LABS: ABG Base Excess 13 mEq/L (-2 to 3); ABG HCO3 40 mEq/L (21-27); ABG Oxygen Saturation 100 % (95-98); ABG PCO2 68 mmHg (35-45); ABG PH 7.38 pH Units (7.32-7.45); ABG PO2 253 mmHg (85-104); ABG TCO2 42 mEq/L (20-26); Blood Gas Modality ASSIST CONTROL; Blood Gas VT 450 cc
[2021-02-27] MEDS ORDERED: 0.9 % Sodium Chloride 1,000 ML ONE (00:37)
[2021-02-27 01:05] LABS: Alanine Aminotransferase 48 Units/L (7-52); Albumin 3.6 g/dL (3.5-5.7); Albumin/Globulin Ratio 1.2 (1.1-2.2); Alkaline Phosphatase 35 Units/L (34-104); Aspartate Amino Transferase 24 Units/L (13-39); BUN/Creatinine Ratio 33 (6-26); Bilirubin,Direct 0.3 mg/dL (0.0-0.2); Bilirubin,Indirect 0.4 mg/dL (0.0-1.0); Bilirubin,Total 0.7 mg/dL (0.3-1.0); Blood Urea Nitrogen 18 mg/dL (6-20); Calcium 8.7 mg/dL (8.6-10.3); Carbon Dioxide 35 mEq/L (23-29); Chloride 97 mEq/L (98-107); Gamma Glutamyl Transpeptidase 75 Units/L (7-64); Glucose 131 mg/dL (70-105); Lactate Dehydrogenase 191 Units/L (140-271); Osmolality,Calculated 292 (280-300); Phosphorous 4.2 mg/dL (2.7-4.5); Potassium 3.4 mEq/L (3.5-5.1); Sodium 139 mEq/L (136-145); Total Protein 6.6 g/dL (6.4-8.9); eGFR For African Americans > 60 (> 60); eGFR For Non-African Americans > 60 (> 60)
[2021-02-27] MEDS: Potassium Chloride 40 MEQ/200 ML BAG IVPB PRN ×2 (01:40→02:57)
[2021-02-27] MEDS: Dexmedetomidine HCl 400 MCG/100 ML MLS IVC SCH ×6 (03:34→22:47)
[2021-02-27] MEDS: Ipratropium/Albuterol Neb 3 ML IH SCH ×6 (03:47→23:43)
[2021-02-27] MEDS: Artificial Tears SOLN 15 ML BOTTLE BOTH EYES SCH ×6 (03:49→23:34)
[2021-02-27 04:04] LABS: Basophils % 0.4 %; Eosinophils # 0.3 K/mcL (0.0-0.6); Eosinophils % 2.9 %; Hematocrit 30.4 % (35.3-44.9); Immature Granulocytes % 1.1 % (0-4); Lymphocytes # 1.7 K/mcL (0.6-4.6); Lymphocytes % 15.1 %; Mean Corpuscular HGB Conc 32.9 g/dL (31.6-35.5); Mean Corpuscular Hemoglobin 30.8 pg (28.0-33.3); Mean Corpuscular Volume 93.5 fL (83.0-100.0); Mean Platelet Volume 10.4 fL (9.4-12.4); Monocytes # 0.9 K/mcL (0.0-1.3); Monocytes % 7.4 %; Neutrophils # 8.4 K/mcL (1.6-8.9); Nucleated Red Blood Cells 0.3 /100 WBC (0); Platelet Count 257 K/mcL (140-400); Red Blood Count 3.25 M/mcL (3.82-4.97); Red Cell Distribution Width 12.7 % (11.5-14.5); Segmented Neutrophils % 73.1 %; White Blood Count 11.4 K/mcL (4.3-11.1)
[2021-02-27 04:22] LABS: INR 1.1; Prothrombin Time 12.8 Seconds (9.4-12.1)
[2021-02-27 04:25] LABS: Activated Partial Thrombo Time 28.2 Seconds (26.0-36.0)
[2021-02-27 05:39] LABS: ABG Base Excess 6 mEq/L (-2 to 3); ABG HCO3 31 mEq/L (21-27); ABG Oxygen Saturation 98 % (95-98); ABG PCO2 42 mmHg (35-45); ABG PH 7.47 pH Units (7.32-7.45); ABG PO2 103 mmHg (85-104); ABG TCO2 32 mEq/L (20-26)
[2021-02-27] MEDS: Insulin LISPRO 300 UNITS/3 ML VIAL SUBQ SCH ×4 (05:48→23:34)
[2021-02-27 07:02] LABS: Carbon Dioxide 32 mEq/L (23-29)
[2021-02-27] MEDS: FentaNYL (PF) 2,500 MCG/50 ML IV.SOLN IVC SCH ×3 (07:30→20:12)
[2021-02-27 08:11] LABS: ABG Base Excess 5 mEq/L (-2 to 3); ABG HCO3 29 mEq/L (21-27); ABG Oxygen Saturation 91 % (95-98); ABG PCO2 39 mmHg (35-45); ABG PH 7.48 pH Units (7.32-7.45); ABG PO2 57 mmHg (85-104); ABG TCO2 30 mEq/L (20-26); Blood Gas VT 450 cc
[2021-02-27] MEDS: Piperacillin/Tazobactam 3.375 GM in 0.9 % Sodium Chloride Mini Bag 100 ML IVPB SCH ×3 (08:24→23:34)
[2021-02-27] MEDS: *HR* Heparin 5,000 UNIT/ML VIAL SQ SCH ×3 (08:27→23:33)
[2021-02-27] MEDS: Chlorhexidine Rinse 15 ML MOUTHWASH MM SCH ×2 (08:28→19:56)
[2021-02-27] MEDS: Pantoprazole 40 MG VIAL IVP SCH (08:28)
[2021-02-27] MEDS: Sennosides/Docusate Sodium TABLET PO SCH ×2 (08:28→19:57)
[2021-02-27 08:57] LABS: BUN/Creatinine Ratio 34 (6-26); Blood Urea Nitrogen 19 mg/dL (6-20); Calcium 8.6 mg/dL (8.6-10.3); Chloride 97 mEq/L (98-107); Glucose 132 mg/dL (70-105); Osmolality,Calculated 286 (280-300); Potassium 4.1 mEq/L (3.5-5.1); Sodium 136 mEq/L (136-145); eGFR For African Americans > 60 (> 60); eGFR For Non-African Americans > 60 (> 60)
[2021-02-27 08:59] LABS: INR 1.2; Prothrombin Time 12.9 Seconds (9.4-12.1)
[2021-02-27 09:01] LABS: Activated Partial Thrombo Time 26.7 Seconds (26.0-36.0)
[2021-02-27 09:04] LABS: Alanine Aminotransferase 44 Units/L (7-52); Albumin 3.4 g/dL (3.5-5.7); Albumin/Globulin Ratio 1.3 (1.1-2.2); Alkaline Phosphatase 36 Units/L (34-104); Aspartate Amino Transferase 25 Units/L (13-39); BUN/Creatinine Ratio 33 (6-26); Bilirubin,Direct 0.3 mg/dL (0.0-0.2); Bilirubin,Indirect 0.4 mg/dL (0.0-1.0); Bilirubin,Total 0.7 mg/dL (0.3-1.0); Blood Urea Nitrogen 18 mg/dL (6-20); Calcium 8.6 mg/dL (8.6-10.3); Carbon Dioxide 31 mEq/L (23-29); Chloride 98 mEq/L (98-107); Gamma Glutamyl Transpeptidase 65 Units/L (7-64); Globulin 2.7 g/dL (2.4-3.5); Glucose 137 mg/dL (70-105); Lactate Dehydrogenase 181 Units/L (140-271); Osmolality,Calculated 290 (280-300); Phosphorous 4.1 mg/dL (2.7-4.5); Potassium 3.6 mEq/L (3.5-5.1); Sodium 138 mEq/L (136-145); Total Protein 6.1 g/dL (6.4-8.9); eGFR For African Americans > 60 (> 60); eGFR For Non-African Americans > 60 (> 60)
[2021-02-27 12:05] LABS: ABG Base Excess 5 mEq/L (-2 to 3); ABG HCO3 30 mEq/L (21-27); ABG Oxygen Saturation 97 % (95-98); ABG PCO2 48 mmHg (35-45); ABG PH 7.41 pH Units (7.32-7.45); ABG PO2 91 mmHg (85-104); ABG TCO2 32 mEq/L (20-26); Blood Gas VT 340 cc
[2021-02-27 12:24] LABS: Basophils % 0.3 %; Eosinophils # 0.3 K/mcL (0.0-0.6); Eosinophils % 2.5 %; Hemoglobin 10.4 g/dL (11.5-15.4); Immature Granulocytes % 1.1 % (0-4); Lymphocytes # 1.4 K/mcL (0.6-4.6); Lymphocytes % 12.1 %; Mean Corpuscular HGB Conc 33.5 g/dL (31.6-35.5); Mean Corpuscular Hemoglobin 31.1 pg (28.0-33.3); Mean Corpuscular Volume 92.8 fL (83.0-100.0); Mean Platelet Volume 10.3 fL (9.4-12.4); Monocytes # 0.9 K/mcL (0.0-1.3); Monocytes % 8.1 %; Neutrophils # 8.7 K/mcL (1.6-8.9); Nucleated Red Blood Cells 0.2 /100 WBC (0); Platelet Count 273 K/mcL (140-400); Red Blood Count 3.34 M/mcL (3.82-4.97); Red Cell Distribution Width 12.7 % (11.5-14.5); Segmented Neutrophils % 75.9 %; White Blood Count 11.4 K/mcL (4.3-11.1)
[2021-02-27 12:43] LABS: BUN/Creatinine Ratio 33 (6-26); Blood Urea Nitrogen 18 mg/dL (6-20); Calcium 8.6 mg/dL (8.6-10.3); Carbon Dioxide 32 mEq/L (23-29); Chloride 97 mEq/L (98-107); Glucose 155 mg/dL (70-105); Osmolality,Calculated 289 (280-300); Potassium 4.1 mEq/L (3.5-5.1); Sodium 137 mEq/L (136-145); eGFR For African Americans > 60 (> 60); eGFR For Non-African Americans > 60 (> 60)
[2021-02-27 16:46] LABS: ABG Base Excess 4 mEq/L (-2 to 3); ABG HCO3 28 mEq/L (21-27); ABG Oxygen Saturation 99 % (95-98); ABG PCO2 39 mmHg (35-45); ABG PH 7.47 pH Units (7.32-7.45); ABG PO2 110 mmHg (85-104); ABG TCO2 29 mEq/L (20-26); Blood Gas Modality ASSIST CONTROL; Blood Gas VT 360 cc
[2021-02-27 17:05] LABS: Alanine Aminotransferase 46 Units/L (7-52); Albumin 3.6 g/dL (3.5-5.7); Albumin/Globulin Ratio 1.3 (1.1-2.2); Alkaline Phosphatase 39 Units/L (34-104); Aspartate Amino Transferase 27 Units/L (13-39); BUN/Creatinine Ratio 34 (6-26); Bilirubin,Direct 0.3 mg/dL (0.0-0.2); Bilirubin,Indirect 0.5 mg/dL (0.0-1.0); Bilirubin,Total 0.8 mg/dL (0.3-1.0); Blood Urea Nitrogen 18 mg/dL (6-20); Calcium 8.9 mg/dL (8.6-10.3); Carbon Dioxide 32 mEq/L (23-29); Chloride 98 mEq/L (98-107); Gamma Glutamyl Transpeptidase 68 Units/L (7-64); Globulin 2.8 g/dL (2.4-3.5); Glucose 114 mg/dL (70-105); Lactate Dehydrogenase 200 Units/L (140-271); Osmolality,Calculated 287 (280-300); Potassium 4.1 mEq/L (3.5-5.1); Sodium 137 mEq/L (136-145); Total Protein 6.4 g/dL (6.4-8.9); eGFR For African Americans > 60 (> 60); eGFR For Non-African Americans > 60 (> 60)
[2021-02-27] MEDS: QUEtiapine Fumarate 100 MG TABLET PO SCH (19:57)
[2021-02-27 20:11] LABS: ABG Base Excess 5 mEq/L (-2 to 3); ABG HCO3 30 mEq/L (21-27); ABG Oxygen Saturation 100 % (95-98); ABG PCO2 46 mmHg (35-45); ABG PH 7.42 pH Units (7.32-7.45); ABG PO2 165 mmHg (85-104); ABG TCO2 31 mEq/L (20-26); Blood Gas Modality ASSIST CONTROL; Blood Gas VT 350 cc
[2021-02-27 20:11] LABS: Basophils % 0.2 %; Eosinophils # 0.3 K/mcL (0.0-0.6); Eosinophils % 1.8 %; Hemoglobin 10.4 g/dL (11.5-15.4); Immature Granulocytes % 0.5 % (0-4); Lymphocytes # 0.8 K/mcL (0.6-4.6); Lymphocytes % 4.6 %; Mean Corpuscular HGB Conc 32.5 g/dL (31.6-35.5); Mean Corpuscular Hemoglobin 30.2 pg (28.0-33.3); Mean Platelet Volume 10.4 fL (9.4-12.4); Monocytes # 1.2 K/mcL (0.0-1.3); Monocytes % 7.2 %; Neutrophils # 14.6 K/mcL (1.6-8.9); Nucleated Red Blood Cells 0.1 /100 WBC (0); Platelet Count 285 K/mcL (140-400); Red Blood Count 3.44 M/mcL (3.82-4.97); Segmented Neutrophils % 85.7 %
[2021-02-27 20:19] LABS: INR 1.2; Prothrombin Time 13.4 Seconds (9.4-12.1)
[2021-02-27 20:22] LABS: Activated Partial Thrombo Time 24.4 Seconds (26.0-36.0)
[2021-02-27 20:27] LABS: Alanine Aminotransferase 45 Units/L (7-52); Albumin 3.6 g/dL (3.5-5.7); Albumin/Globulin Ratio 1.2 (1.1-2.2); Alkaline Phosphatase 36 Units/L (34-104); Aspartate Amino Transferase 26 Units/L (13-39); BUN/Creatinine Ratio 33 (6-26); Bilirubin,Direct 0.4 mg/dL (0.0-0.2); Bilirubin,Indirect 0.5 mg/dL (0.0-1.0); Bilirubin,Total 0.9 mg/dL (0.3-1.0); Blood Urea Nitrogen 18 mg/dL (6-20); Calcium 8.9 mg/dL (8.6-10.3); Carbon Dioxide 29 mEq/L (23-29); Chloride 98 mEq/L (98-107); Gamma Glutamyl Transpeptidase 72 Units/L (7-64); Glucose 144 mg/dL (70-105); Lactate Dehydrogenase 200 Units/L (140-271); Osmolality,Calculated 286 (280-300); Phosphorous 4.8 mg/dL (2.7-4.5); Potassium 4.6 mEq/L (3.5-5.1); Sodium 136 mEq/L (136-145); Total Protein 6.6 g/dL (6.4-8.9); eGFR For African Americans > 60 (> 60); eGFR For Non-African Americans > 60 (> 60)
[2021-02-27] MEDS ORDERED: Furosemide 40 MG/4 ML VIAL IVP ONE (20:48)
[2021-02-27 23:00] LABS: Bacteria,Urine Few per hpf (None-Few); Bilirubin,Urine Negative (Negative); Blood,Urine Small (Negative); Clarity,Urine Clear (Clear); Color,Urine Colorless (Yellow); Glucose,Urine (UA) Normal (Normal); Ketones,Urine Negative (Negative); Leukocyte Esterase,Urine Negative (Negative); Mucus,Urine Few per lpf (None-Few); Nitrite,Urine Negative (Negative); PH,Urine 6.5 pH Units (5.0-8.0); Protein,Urine Negative (Neg-Trace); RBC,Urine 15-30 per hpf (0-3); Specific Gravity,Urine 1.006 (1.010-1.025); Urobilinogen,Urine Normal (Normal); WBC,Urine 0-3 per hpf (0-3)
[2021-02-27 23:43] LABS: ABG Base Excess 4 mEq/L (-2 to 3); ABG HCO3 28 mEq/L (21-27); ABG Oxygen Saturation 98 % (95-98); ABG PCO2 41 mmHg (35-45); ABG PH 7.45 pH Units (7.32-7.45); ABG PO2 94 mmHg (85-104); ABG TCO2 29 mEq/L (20-26); Blood Gas Modality ASSIST CONTROL; Blood Gas VT 370 cc
[2021-02-27 23:50] LABS: BUN/Creatinine Ratio 29 (6-26); Blood Urea Nitrogen 17 mg/dL (6-20); Calcium 9.2 mg/dL (8.6-10.3); Carbon Dioxide 31 mEq/L (23-29); Chloride 98 mEq/L (98-107); Glucose 143 mg/dL (70-105); Osmolality,Calculated 292 (280-300); Potassium 3.8 mEq/L (3.5-5.1); Sodium 139 mEq/L (136-145); eGFR For African Americans > 60 (> 60); eGFR For Non-African Americans > 60 (> 60)
[2021-02-28] MEDS: Dexmedetomidine HCl 400 MCG/100 ML MLS IVC SCH ×2 (02:18→05:56)
[2021-02-28] MEDS: Artificial Tears SOLN 15 ML BOTTLE BOTH EYES SCH ×6 (03:19→23:25)
[2021-02-28 03:50] LABS: Basophils % 0.3 %; Eosinophils # 0.4 K/mcL (0.0-0.6); Eosinophils % 2.8 %; Hematocrit 31.2 % (35.3-44.9); Hemoglobin 10.2 g/dL (11.5-15.4); Immature Granulocytes % 0.7 % (0-4); Lymphocytes # 1.4 K/mcL (0.6-4.6); Lymphocytes % 11.1 %; Mean Corpuscular HGB Conc 32.7 g/dL (31.6-35.5); Mean Corpuscular Hemoglobin 30.4 pg (28.0-33.3); Mean Corpuscular Volume 93.1 fL (83.0-100.0); Mean Platelet Volume 10.2 fL (9.4-12.4); Monocytes # 0.9 K/mcL (0.0-1.3); Monocytes % 6.8 %; Neutrophils # 9.9 K/mcL (1.6-8.9); Nucleated Red Blood Cells 0.2 /100 WBC (0); Platelet Count 272 K/mcL (140-400); Red Blood Count 3.35 M/mcL (3.82-4.97); Segmented Neutrophils % 78.3 %; White Blood Count 12.7 K/mcL (4.3-11.1)
[2021-02-28] MEDS: Ipratropium/Albuterol Neb 3 ML IH SCH ×6 (03:58→23:01)
[2021-02-28 04:04] LABS: ABG Base Excess 4 mEq/L (-2 to 3); ABG HCO3 28 mEq/L (21-27); ABG Oxygen Saturation 98 % (95-98); ABG PCO2 41 mmHg (35-45); ABG PH 7.45 pH Units (7.32-7.45); ABG PO2 92 mmHg (85-104); ABG TCO2 30 mEq/L (20-26); Blood Gas Modality ASSIST CONTROL; Blood Gas VT 370 cc
[2021-02-28 04:08] LABS: Alanine Aminotransferase 42 Units/L (7-52); Albumin 3.5 g/dL (3.5-5.7); Albumin/Globulin Ratio 1.1 (1.1-2.2); Alkaline Phosphatase 35 Units/L (34-104); Aspartate Amino Transferase 22 Units/L (13-39); BUN/Creatinine Ratio 28 (6-26); Bilirubin,Direct 0.4 mg/dL (0.0-0.2); Bilirubin,Indirect 0.5 mg/dL (0.0-1.0); Bilirubin,Total 0.9 mg/dL (0.3-1.0); Blood Urea Nitrogen 17 mg/dL (6-20); Carbon Dioxide 32 mEq/L (23-29); Chloride 98 mEq/L (98-107); Gamma Glutamyl Transpeptidase 70 Units/L (7-64); Globulin 3.1 g/dL (2.4-3.5); Glucose 128 mg/dL (70-105); Lactate Dehydrogenase 170 Units/L (140-271); Magnesium 2.1 mg/dL (1.6-2.6); Osmolality,Calculated 291 (280-300); Potassium 3.4 mEq/L (3.5-5.1); Sodium 139 mEq/L (136-145); Total Protein 6.6 g/dL (6.4-8.9); eGFR For African Americans > 60 (> 60); eGFR For Non-African Americans > 60 (> 60)
[2021-02-28 04:09] LABS: INR 1.2; Prothrombin Time 13.2 Seconds (9.4-12.1)
[2021-02-28 04:11] LABS: Activated Partial Thrombo Time 29.4 Seconds (26.0-36.0)
[2021-02-28] MEDS: Potassium Chloride 40 MEQ/200 ML BAG IVPB PRN ×4 (04:18→14:07)
[2021-02-28] MEDS: Insulin LISPRO 300 UNITS/3 ML VIAL SUBQ SCH ×4 (05:56→23:26)
[2021-02-28] MEDS: *HR* Heparin 5,000 UNIT/ML VIAL SQ SCH ×3 (08:32→23:27)
[2021-02-28] MEDS: Piperacillin/Tazobactam 3.375 GM in 0.9 % Sodium Chloride Mini Bag 100 ML IVPB SCH ×3 (08:33→23:28)
[2021-02-28] MEDS: Chlorhexidine Rinse 15 ML MOUTHWASH MM SCH ×2 (08:34→21:08)
[2021-02-28] MEDS: Sennosides/Docusate Sodium TABLET PO SCH ×2 (08:35→21:08)
[2021-02-28] MEDS: Pantoprazole 40 MG VIAL IVP SCH (08:35)
[2021-02-28 08:44] LABS: ABG Base Excess 4 mEq/L (-2 to 3); ABG HCO3 30 mEq/L (21-27); ABG Oxygen Saturation 99 % (95-98); ABG PCO2 47 mmHg (35-45); ABG PH 7.41 pH Units (7.32-7.45); ABG PO2 137 mmHg (85-104); ABG TCO2 31 mEq/L (20-26); Blood Gas Modality AF; Blood Gas VT 370 cc
[2021-02-28 09:15] LABS: Alanine Aminotransferase 44 Units/L (7-52); Albumin 3.6 g/dL (3.5-5.7); Albumin/Globulin Ratio 1.2 (1.1-2.2); Alkaline Phosphatase 39 Units/L (34-104); Aspartate Amino Transferase 26 Units/L (13-39); BUN/Creatinine Ratio 34 (6-26); Blood Urea Nitrogen 20 mg/dL (6-20); Calcium 9.3 mg/dL (8.6-10.3); Carbon Dioxide 30 mEq/L (23-29); Chloride 99 mEq/L (98-107); Globulin 2.9 g/dL (2.4-3.5); Glucose 130 mg/dL (70-105); Osmolality,Calculated 290 (280-300); Potassium 3.5 mEq/L (3.5-5.1); Sodium 138 mEq/L (136-145); Total Protein 6.5 g/dL (6.4-8.9); eGFR For African Americans > 60 (> 60); eGFR For Non-African Americans > 60 (> 60)
[2021-02-28] MEDS: FentaNYL (PF) 2,500 MCG/50 ML IV.SOLN IVC SCH ×2 (10:10→23:00)
[2021-02-28 12:44] LABS: Albumin 3.7 g/dL (3.5-5.7); BUN/Creatinine Ratio 37 (6-26); Blood Urea Nitrogen 23 mg/dL (6-20); Calcium 9.4 mg/dL (8.6-10.3); Carbon Dioxide 27 mEq/L (23-29); Chloride 99 mEq/L (98-107); Glucose 162 mg/dL (70-105); Osmolality,Calculated 295 (280-300); Potassium 3.8 mEq/L (3.5-5.1); Sodium 139 mEq/L (136-145); eGFR For African Americans > 60 (> 60); eGFR For Non-African Americans > 60 (> 60)
[2021-02-28 13:27] LABS: ABG Base Excess 3 mEq/L (-2 to 3); ABG HCO3 29 mEq/L (21-27); ABG Oxygen Saturation 100 % (95-98); ABG PCO2 52 mmHg (35-45); ABG PH 7.36 pH Units (7.32-7.45); ABG PO2 354 mmHg (85-104); ABG TCO2 31 mEq/L (20-26); Blood Gas Modality CPAP/PS
[2021-02-28 14:21] LABS: Basophils % 0.3 %; Eosinophils # 0.4 K/mcL (0.0-0.6); Hematocrit 33.9 % (35.3-44.9); Hemoglobin 11.2 g/dL (11.5-15.4); Immature Granulocytes % 1.1 % (0-4); Lymphocytes # 1.3 K/mcL (0.6-4.6); Lymphocytes % 9.3 %; Mean Corpuscular Volume 93.9 fL (83.0-100.0); Mean Platelet Volume 10.9 fL (9.4-12.4); Monocytes # 1.1 K/mcL (0.0-1.3); Monocytes % 7.9 %; Neutrophils # 11.2 K/mcL (1.6-8.9); Platelet Count 329 K/mcL (140-400); Red Blood Count 3.61 M/mcL (3.82-4.97); Red Cell Distribution Width 13.2 % (11.5-14.5); Segmented Neutrophils % 78.4 %; White Blood Count 14.2 K/mcL (4.3-11.1)
[2021-02-28 16:04] LABS: Alanine Aminotransferase 52 Units/L (7-52); Albumin/Globulin Ratio 1.1 (1.1-2.2); Alkaline Phosphatase 44 Units/L (34-104); Aspartate Amino Transferase 34 Units/L (13-39); Bilirubin,Direct 0.5 mg/dL (0.0-0.2); Bilirubin,Indirect 0.5 mg/dL (0.0-1.0); Gamma Glutamyl Transpeptidase 77 Units/L (7-64); Globulin 3.4 g/dL (2.4-3.5); Lactate Dehydrogenase 215 Units/L (140-271); Phosphorous 4.5 mg/dL (2.7-4.5); Total Protein 7.1 g/dL (6.4-8.9)
[2021-02-28 16:16] LABS: INR 1.2; Prothrombin Time 13.1 Seconds (9.4-12.1)
[2021-02-28 16:25] LABS: ABG Base Excess 1 mEq/L (-2 to 3); ABG HCO3 30 mEq/L (21-27); ABG Oxygen Saturation 100 % (95-98); ABG PCO2 66 mmHg (35-45); ABG PH 7.26 pH Units (7.32-7.45); ABG PO2 498 mmHg (85-104); ABG TCO2 32 mEq/L (20-26); Blood Gas Modality AF; Blood Gas VT 370 cc
[2021-02-28 17:24] LABS: BUN/Creatinine Ratio 35 (6-26); Blood Urea Nitrogen 23 mg/dL (6-20); Calcium 9.6 mg/dL (8.6-10.3); Carbon Dioxide 28 mEq/L (23-29); Chloride 101 mEq/L (98-107); Glucose 169 mg/dL (70-105); Osmolality,Calculated 300 (280-300); Potassium 4.1 mEq/L (3.5-5.1); Sodium 141 mEq/L (136-145); eGFR For African Americans > 60 (> 60); eGFR For Non-African Americans > 60 (> 60)
[2021-02-28] MEDS ORDERED: Fluconazole 150 MG TABLET PO ONE (17:49)
[2021-02-28 20:25] LABS: VBG Ionized Calcium 1.24 mmol/L (1.15-1.35)
[2021-02-28 20:30] LABS: Basophils # 0.1 K/mcL (0.0-0.2); Basophils % 0.3 %; Eosinophils # 0.1 K/mcL (0.0-0.6); Eosinophils % 0.5 %; Hematocrit 33.8 % (35.3-44.9); Hemoglobin 10.7 g/dL (11.5-15.4); Immature Granulocytes % 0.9 % (0-4); Lymphocytes # 1.2 K/mcL (0.6-4.6); Lymphocytes % 6.8 %; Mean Corpuscular HGB Conc 31.7 g/dL (31.6-35.5); Mean Corpuscular Hemoglobin 30.1 pg (28.0-33.3); Mean Corpuscular Volume 95.2 fL (83.0-100.0); Mean Platelet Volume 10.3 fL (9.4-12.4); Monocytes # 1.4 K/mcL (0.0-1.3); Monocytes % 8.2 %; Neutrophils # 14.4 K/mcL (1.6-8.9); Platelet Count 402 K/mcL (140-400); Red Blood Count 3.55 M/mcL (3.82-4.97); Red Cell Distribution Width 13.2 % (11.5-14.5); Segmented Neutrophils % 83.3 %; White Blood Count 17.3 K/mcL (4.3-11.1)
[2021-02-28 20:38] LABS: INR 1.2; Prothrombin Time 13.5 Seconds (9.4-12.1)
[2021-02-28 20:47] LABS: Alanine Aminotransferase 56 Units/L (7-52); Albumin 3.8 g/dL (3.5-5.7); Albumin/Globulin Ratio 1.2 (1.1-2.2); Alkaline Phosphatase 44 Units/L (34-104); Aspartate Amino Transferase 34 Units/L (13-39); BUN/Creatinine Ratio 37 (6-26); Bilirubin,Direct 0.4 mg/dL (0.0-0.2); Bilirubin,Indirect 0.3 mg/dL (0.0-1.0); Bilirubin,Total 0.7 mg/dL (0.3-1.0); Blood Urea Nitrogen 22 mg/dL (6-20); Calcium 9.4 mg/dL (8.6-10.3); Carbon Dioxide 31 mEq/L (23-29); Chloride 101 mEq/L (98-107); Globulin 3.1 g/dL (2.4-3.5); Glucose 119 mg/dL (70-105); Lactate Dehydrogenase 206 Units/L (140-271); Magnesium 2.1 mg/dL (1.6-2.6); Osmolality,Calculated 294 (280-300); Phosphorous 4.5 mg/dL (2.7-4.5); Potassium 4.2 mEq/L (3.5-5.1); Sodium 140 mEq/L (136-145); Total Protein 6.9 g/dL (6.4-8.9); eGFR For African Americans > 60 (> 60); eGFR For Non-African Americans > 60 (> 60)
[2021-02-28 20:50] LABS: ABG Base Excess 3 mEq/L (-2 to 3); ABG HCO3 30 mEq/L (21-27); ABG Oxygen Saturation 96 % (95-98); ABG PCO2 57 mmHg (35-45); ABG PH 7.34 pH Units (7.32-7.45); ABG PO2 93 mmHg (85-104); ABG TCO2 32 mEq/L (20-26); Blood Gas VT 370 cc
[2021-02-28] MEDS: QUEtiapine Fumarate 100 MG TABLET PO SCH (21:08)
[2021-02-28 21:15] LABS: Gamma Glutamyl Transpeptidase 78 Units/L (7-64)
[2021-03-01 00:12] LABS: ABG Base Excess 2 mEq/L (-2 to 3); ABG HCO3 29 mEq/L (21-27); ABG Oxygen Saturation 98 % (95-98); ABG PCO2 57 mmHg (35-45); ABG PH 7.31 pH Units (7.32-7.45); ABG PO2 112 mmHg (85-104); ABG TCO2 31 mEq/L (20-26); Blood Gas VT 400 cc
[2021-03-01 00:29] LABS: BUN/Creatinine Ratio 38 (6-26); Blood Urea Nitrogen 21 mg/dL (6-20); Carbon Dioxide 28 mEq/L (23-29); Chloride 103 mEq/L (98-107); Glucose 116 mg/dL (70-105); Potassium 4.2 mEq/L (3.5-5.1); Sodium 141 mEq/L (136-145); eGFR For African Americans > 60 (> 60); eGFR For Non-African Americans > 60 (> 60)
[2021-03-01 00:30] LABS: Calcium 9.3 mg/dL (8.6-10.3); Osmolality,Calculated 296 (280-300)
[2021-03-01 00:41] LABS: Bacteria,Urine Few per hpf (None-Few); Bilirubin,Urine Small (Negative); Blood,Urine Moderate (Negative); Clarity,Urine Clear (Clear); Color,Urine Yellow (Yellow); Glucose,Urine (UA) Normal (Normal); Ketones,Urine 60 mg/dL (Negative); Leukocyte Esterase,Urine Negative (Negative); Mucus,Urine Few per lpf (None-Few); Nitrite,Urine Negative (Negative); PH,Urine 5.5 pH Units (5.0-8.0); Protein,Urine 50 mg/dL (Neg-Trace); RBC,Urine TNTC per hpf (0-3); Specific Gravity,Urine > 1.030 (1.010-1.025); Squamous Epithelial Cell,Urine Few per hpf (None-Few); Urobilinogen,Urine Normal (Normal)
[2021-03-01] MEDS: Artificial Tears SOLN 15 ML BOTTLE BOTH EYES SCH ×6 (03:16→23:47)
[2021-03-01] MEDS: Ipratropium/Albuterol Neb 3 ML IH SCH ×5 (03:47→20:10)
[2021-03-01 04:20] LABS: VBG Ionized Calcium 1.22 mmol/L (1.15-1.35)
[2021-03-01 04:21] LABS: Basophils % 0.3 %; Eosinophils # 0.2 K/mcL (0.0-0.6); Eosinophils % 2.1 %; Hematocrit 33.6 % (35.3-44.9); Hemoglobin 10.8 g/dL (11.5-15.4); Immature Granulocytes % 0.8 % (0-4); Lymphocytes # 1.7 K/mcL (0.6-4.6); Lymphocytes % 14.6 %; Mean Corpuscular HGB Conc 32.1 g/dL (31.6-35.5); Mean Corpuscular Hemoglobin 30.9 pg (28.0-33.3); Monocytes # 1.1 K/mcL (0.0-1.3); Monocytes % 9.5 %; Neutrophils # 8.2 K/mcL (1.6-8.9); Platelet Count 336 K/mcL (140-400); Red Cell Distribution Width 13.7 % (11.5-14.5); Segmented Neutrophils % 72.7 %; White Blood Count 11.3 K/mcL (4.3-11.1)
[2021-03-01 04:30] LABS: INR 1.2; Prothrombin Time 12.9 Seconds (9.4-12.1)
[2021-03-01 04:33] LABS: Activated Partial Thrombo Time 28.8 Seconds (26.0-36.0)
[2021-03-01 04:40] LABS: Albumin 3.6 g/dL (3.5-5.7); Albumin/Globulin Ratio 1.1 (1.1-2.2); BUN/Creatinine Ratio 39 (6-26); Bilirubin,Direct 0.4 mg/dL (0.0-0.2); Bilirubin,Indirect 0.4 mg/dL (0.0-1.0); Bilirubin,Total 0.8 mg/dL (0.3-1.0); Blood Urea Nitrogen 21 mg/dL (6-20); Calcium 9.3 mg/dL (8.6-10.3); Carbon Dioxide 28 mEq/L (23-29); Chloride 102 mEq/L (98-107); Globulin 3.3 g/dL (2.4-3.5); Glucose 115 mg/dL (70-105); Magnesium 1.9 mg/dL (1.6-2.6); Osmolality,Calculated 296 (280-300); Phosphorous 3.7 mg/dL (2.7-4.5); Potassium 3.8 mEq/L (3.5-5.1); Sodium 141 mEq/L (136-145); Total Protein 6.9 g/dL (6.4-8.9); eGFR For African Americans > 60 (> 60); eGFR For Non-African Americans > 60 (> 60)
[2021-03-01 04:40] LABS: ABG Base Excess 1 mEq/L (-2 to 3); ABG HCO3 29 mEq/L (21-27); ABG Oxygen Saturation 98 % (95-98); ABG PCO2 57 mmHg (35-45); ABG PH 7.31 pH Units (7.32-7.45); ABG PO2 122 mmHg (85-104); ABG TCO2 30 mEq/L (20-26); Blood Gas VT 400 cc
[2021-03-01] MEDS: Insulin LISPRO 300 UNITS/3 ML VIAL SUBQ SCH ×3 (05:42→18:04)
[2021-03-01] MEDS ORDERED: 0.9 % Sodium Chloride 1,000 ML ONE (07:53)
[2021-03-01] MEDS: *HR* Heparin 5,000 UNIT/ML VIAL SQ SCH ×3 (08:16→23:49)
[2021-03-01] MEDS: Pantoprazole 40 MG VIAL IVP SCH (08:16)
[2021-03-01] MEDS: Sennosides/Docusate Sodium TABLET PO SCH ×2 (08:17→20:31)
[2021-03-01] MEDS: Piperacillin/Tazobactam 3.375 GM in 0.9 % Sodium Chloride Mini Bag 100 ML IVPB SCH ×3 (08:17→23:48)
[2021-03-01] MEDS: Chlorhexidine Rinse 15 ML MOUTHWASH MM SCH ×2 (08:32→20:31)
[2021-03-01 08:45] LABS: ABG Base Excess 2 mEq/L (-2 to 3); ABG HCO3 27 mEq/L (21-27); ABG Oxygen Saturation 97 % (95-98); ABG PCO2 42 mmHg (35-45); ABG PH 7.42 pH Units (7.32-7.45); ABG PO2 85 mmHg (85-104); ABG TCO2 28 mEq/L (20-26); Blood Gas Modality AF; Blood Gas VT 420 cc
[2021-03-01 08:56] LABS: BUN/Creatinine Ratio 38 (6-26); Blood Urea Nitrogen 21 mg/dL (6-20); Calcium 9.2 mg/dL (8.6-10.3); Carbon Dioxide 27 mEq/L (23-29); Chloride 101 mEq/L (98-107); Glucose 126 mg/dL (70-105); Osmolality,Calculated 293 (280-300); Potassium 3.7 mEq/L (3.5-5.1); Sodium 139 mEq/L (136-145); eGFR For African Americans > 60 (> 60); eGFR For Non-African Americans > 60 (> 60)
[2021-03-01] MEDS: Potassium Chloride 40 MEQ/200 ML BAG IVPB PRN (10:14)
[2021-03-01] MEDS: FentaNYL (PF) 2,500 MCG/50 ML IV.SOLN IVC SCH (12:40)
[2021-03-01 12:43] LABS: ABG Base Excess 1 mEq/L (-2 to 3); ABG HCO3 26 mEq/L (21-27); ABG Oxygen Saturation 99 % (95-98); ABG PCO2 39 mmHg (35-45); ABG PH 7.43 pH Units (7.32-7.45); ABG PO2 154 mmHg (85-104); ABG TCO2 27 mEq/L (20-26); Blood Gas Modality AF; Blood Gas VT 420 cc
[2021-03-01 12:45] LABS: VBG Ionized Calcium 1.13 mmol/L (1.15-1.35)
[2021-03-01 12:47] LABS: Basophils % 0.3 %; Eosinophils # 0.3 K/mcL (0.0-0.6); Eosinophils % 3.2 %; Hematocrit 31.7 % (35.3-44.9); Hemoglobin 10.4 g/dL (11.5-15.4); Lymphocytes # 1.4 K/mcL (0.6-4.6); Mean Corpuscular HGB Conc 32.8 g/dL (31.6-35.5); Mean Corpuscular Volume 94.3 fL (83.0-100.0); Mean Platelet Volume 10.1 fL (9.4-12.4); Monocytes % 9.6 %; Neutrophils # 7.6 K/mcL (1.6-8.9); Platelet Count 352 K/mcL (140-400); Red Blood Count 3.36 M/mcL (3.82-4.97); Red Cell Distribution Width 13.5 % (11.5-14.5); Segmented Neutrophils % 72.9 %; White Blood Count 10.4 K/mcL (4.3-11.1)
[2021-03-01 12:54] LABS: INR 1.2; Prothrombin Time 13.5 Seconds (9.4-12.1)
[2021-03-01 13:09] LABS: Alanine Aminotransferase 55 Units/L (7-52); Albumin 3.6 g/dL (3.5-5.7); Albumin/Globulin Ratio 1.2 (1.1-2.2); Alkaline Phosphatase 41 Units/L (34-104); Aspartate Amino Transferase 33 Units/L (13-39); BUN/Creatinine Ratio 40 (6-26); Bilirubin,Direct 0.4 mg/dL (0.0-0.2); Bilirubin,Indirect 0.4 mg/dL (0.0-1.0); Bilirubin,Total 0.8 mg/dL (0.3-1.0); Blood Urea Nitrogen 22 mg/dL (6-20); Calcium 8.9 mg/dL (8.6-10.3); Carbon Dioxide 25 mEq/L (23-29); Chloride 102 mEq/L (98-107); Gamma Glutamyl Transpeptidase 68 Units/L (7-64); Globulin 3.1 g/dL (2.4-3.5); Glucose 118 mg/dL (70-105); Lipase 90 Units/L (11-82); Osmolality,Calculated 292 (280-300); Phosphorous 2.5 mg/dL (2.7-4.5); Sodium 139 mEq/L (136-145); Total Protein 6.7 g/dL (6.4-8.9); eGFR For African Americans > 60 (> 60); eGFR For Non-African Americans > 60 (> 60)
[2021-03-01 16:54] LABS: ABG Base Excess 0 mEq/L (-2 to 3); ABG HCO3 24 mEq/L (21-27); ABG Oxygen Saturation 100 % (95-98); ABG PCO2 34 mmHg (35-45); ABG PH 7.45 pH Units (7.32-7.45); ABG PO2 197 mmHg (85-104); ABG TCO2 25 mEq/L (20-26); Blood Gas Modality ASSIST CONTROL; Blood Gas VT 420 cc
[2021-03-01 17:16] LABS: BUN/Creatinine Ratio 39 (6-26); Blood Urea Nitrogen 22 mg/dL (6-20); Calcium 8.9 mg/dL (8.6-10.3); Carbon Dioxide 24 mEq/L (23-29); Chloride 102 mEq/L (98-107); Glucose 106 mg/dL (70-105); Osmolality,Calculated 292 (280-300); Sodium 139 mEq/L (136-145); eGFR For African Americans > 60 (> 60); eGFR For Non-African Americans > 60 (> 60)
[2021-03-01 20:30] LABS: Basophils # 0.1 K/mcL (0.0-0.2); Basophils % 0.5 %; Eosinophils # 0.4 K/mcL (0.0-0.6); Eosinophils % 3.8 %; Hematocrit 32.2 % (35.3-44.9); Hemoglobin 10.4 g/dL (11.5-15.4); Immature Granulocytes % 0.9 % (0-4); Lymphocytes # 1.4 K/mcL (0.6-4.6); Mean Corpuscular HGB Conc 32.3 g/dL (31.6-35.5); Mean Corpuscular Hemoglobin 30.2 pg (28.0-33.3); Mean Corpuscular Volume 93.6 fL (83.0-100.0); Mean Platelet Volume 9.8 fL (9.4-12.4); Monocytes % 8.7 %; Neutrophils # 8.1 K/mcL (1.6-8.9); Platelet Count 395 K/mcL (140-400); Red Blood Count 3.44 M/mcL (3.82-4.97); Red Cell Distribution Width 13.2 % (11.5-14.5); Segmented Neutrophils % 73.1 %; White Blood Count 11.1 K/mcL (4.3-11.1)
[2021-03-01] MEDS: Scopolamine Patch 1.5 MG PATCH.TD72 TD SCH (20:31)
[2021-03-01] MEDS: QUEtiapine Fumarate 100 MG TABLET PO SCH (20:31)
[2021-03-01 20:35] LABS: VBG Ionized Calcium 1.14 mmol/L (1.15-1.35)
[2021-03-01 20:40] LABS: INR 1.2; Prothrombin Time 13.5 Seconds (9.4-12.1)
[2021-03-01 20:42] LABS: Activated Partial Thrombo Time 28.9 Seconds (26.0-36.0)
[2021-03-01 20:46] LABS: Alanine Aminotransferase 56 Units/L (7-52); Albumin 3.6 g/dL (3.5-5.7); Albumin/Globulin Ratio 1.2 (1.1-2.2); Alkaline Phosphatase 43 Units/L (34-104); Aspartate Amino Transferase 34 Units/L (13-39); BUN/Creatinine Ratio 39 (6-26); Bilirubin,Direct 0.3 mg/dL (0.0-0.2); Bilirubin,Indirect 0.5 mg/dL (0.0-1.0); Bilirubin,Total 0.8 mg/dL (0.3-1.0); Blood Urea Nitrogen 21 mg/dL (6-20); Carbon Dioxide 25 mEq/L (23-29); Chloride 102 mEq/L (98-107); Gamma Glutamyl Transpeptidase 73 Units/L (7-64); Globulin 3.1 g/dL (2.4-3.5); Glucose 108 mg/dL (70-105); Lactate Dehydrogenase 179 Units/L (140-271); Osmolality,Calculated 290 (280-300); Phosphorous 3.8 mg/dL (2.7-4.5); Potassium 4.4 mEq/L (3.5-5.1); Sodium 138 mEq/L (136-145); Total Protein 6.7 g/dL (6.4-8.9); eGFR For African Americans > 60 (> 60); eGFR For Non-African Americans > 60 (> 60)
[2021-03-01 21:44] LABS: ABG Base Excess 0 mEq/L (-2 to 3); ABG HCO3 24 mEq/L (21-27); ABG Oxygen Saturation 100 % (95-98); ABG PCO2 36 mmHg (35-45); ABG PH 7.44 pH Units (7.32-7.45); ABG PO2 155 mmHg (85-104); ABG TCO2 25 mEq/L (20-26); Blood Gas Modality ASSIST CONTROL; Blood Gas VT 420 cc
[2021-03-02] MEDS: Insulin LISPRO 300 UNITS/3 ML VIAL SUBQ SCH ×5 (00:19→23:23)
[2021-03-02] MEDS: Ipratropium/Albuterol Neb 3 ML IH SCH ×7 (00:38→23:44)
[2021-03-02 00:39] LABS: BUN/Creatinine Ratio 38 (6-26); Blood Urea Nitrogen 20 mg/dL (6-20); Calcium 8.8 mg/dL (8.6-10.3); Carbon Dioxide 24 mEq/L (23-29); Chloride 102 mEq/L (98-107); Glucose 97 mg/dL (70-105); Osmolality,Calculated 289 (280-300); Sodium 138 mEq/L (136-145); eGFR For African Americans > 60 (> 60); eGFR For Non-African Americans > 60 (> 60)
[2021-03-02 00:44] LABS: ABG Base Excess -1 mEq/L (-2 to 3); ABG HCO3 24 mEq/L (21-27); ABG Oxygen Saturation 99 % (95-98); ABG PCO2 38 mmHg (35-45); ABG PO2 126 mmHg (85-104); ABG TCO2 25 mEq/L (20-26); Blood Gas Modality ASSIST CONTROL; Blood Gas VT 420 cc
[2021-03-02 00:45] LABS: Bilirubin,Urine Negative (Negative); Blood,Urine Large (Negative); Budding Yeast,Urine Few per hpf (None Seen); Calcium Oxalate Crystals,Urine Present per hpf; Clarity,Urine Turbid (Clear); Color,Urine Yellow (Yellow); Glucose,Urine (UA) Normal (Normal); Hyaline Casts,Urine Few per lpf (None Seen); Ketones,Urine 60 mg/dL (Negative); Leukocyte Esterase,Urine Moderate (Negative); Mucus,Urine Few per lpf (None-Few); Nitrite,Urine Negative (Negative); Protein,Urine 30 mg/dL (Neg-Trace); RBC,Urine TNTC per hpf (0-3); Specific Gravity,Urine > 1.030 (1.010-1.025); Squamous Epithelial Cell,Urine Few per hpf (None-Few); WBC,Urine 50-100 per hpf (0-3)
[2021-03-02] MEDS: FentaNYL (PF) 2,500 MCG/50 ML IV.SOLN IVC SCH ×2 (01:52→15:54)
[2021-03-02] MEDS: Artificial Tears SOLN 15 ML BOTTLE BOTH EYES SCH ×6 (04:01→23:23)
[2021-03-02 04:11] LABS: Basophils % 0.4 %; Eosinophils # 0.4 K/mcL (0.0-0.6); Eosinophils % 4.4 %; Hematocrit 30.6 % (35.3-44.9); Immature Granulocytes % 1.1 % (0-4); Lymphocytes # 1.9 K/mcL (0.6-4.6); Lymphocytes % 19.9 %; Mean Corpuscular HGB Conc 32.7 g/dL (31.6-35.5); Mean Corpuscular Hemoglobin 30.2 pg (28.0-33.3); Mean Corpuscular Volume 92.4 fL (83.0-100.0); Mean Platelet Volume 9.8 fL (9.4-12.4); Monocytes # 0.9 K/mcL (0.0-1.3); Monocytes % 9.7 %; Neutrophils # 6.2 K/mcL (1.6-8.9); Platelet Count 346 K/mcL (140-400); Red Blood Count 3.31 M/mcL (3.82-4.97); Red Cell Distribution Width 13.1 % (11.5-14.5); Segmented Neutrophils % 64.5 %; White Blood Count 9.6 K/mcL (4.3-11.1)
[2021-03-02 04:21] LABS: INR 1.2
[2021-03-02 04:24] LABS: VBG Ionized Calcium 1.15 mmol/L (1.15-1.35)
[2021-03-02 04:24] LABS: Activated Partial Thrombo Time 29.1 Seconds (26.0-36.0)
[2021-03-02 04:29] LABS: Alanine Aminotransferase 52 Units/L (7-52); Albumin 3.5 g/dL (3.5-5.7); Albumin/Globulin Ratio 1.2 (1.1-2.2); Alkaline Phosphatase 40 Units/L (34-104); Aspartate Amino Transferase 31 Units/L (13-39); BUN/Creatinine Ratio 41 (6-26); Bilirubin,Direct 0.3 mg/dL (0.0-0.2); Bilirubin,Indirect 0.5 mg/dL (0.0-1.0); Bilirubin,Total 0.8 mg/dL (0.3-1.0); Blood Urea Nitrogen 22 mg/dL (6-20); Calcium 8.9 mg/dL (8.6-10.3); Carbon Dioxide 24 mEq/L (23-29); Chloride 102 mEq/L (98-107); Gamma Glutamyl Transpeptidase 71 Units/L (7-64); Globulin 2.9 g/dL (2.4-3.5); Glucose 96 mg/dL (70-105); Lactate Dehydrogenase 172 Units/L (140-271); Magnesium 1.8 mg/dL (1.6-2.6); Osmolality,Calculated 291 (280-300); Phosphorous 3.9 mg/dL (2.7-4.5); Potassium 3.7 mEq/L (3.5-5.1); Sodium 139 mEq/L (136-145); Total Protein 6.4 g/dL (6.4-8.9); eGFR For African Americans > 60 (> 60); eGFR For Non-African Americans > 60 (> 60)
[2021-03-02] MEDS: Potassium Chloride 40 MEQ/200 ML BAG IVPB PRN (04:41)
[2021-03-02 05:11] LABS: ABG Base Excess 1 mEq/L (-2 to 3); ABG HCO3 26 mEq/L (21-27); ABG Oxygen Saturation 99 % (95-98); ABG PCO2 48 mmHg (35-45); ABG PH 7.35 pH Units (7.32-7.45); ABG PO2 122 mmHg (85-104); ABG TCO2 28 mEq/L (20-26); Blood Gas Modality ASSIST CONTROL; Blood Gas VT 420 cc
[2021-03-02] MEDS: Chlorhexidine Rinse 15 ML MOUTHWASH MM SCH ×2 (07:36→20:26)
[2021-03-02] MEDS: *HR* Heparin 5,000 UNIT/ML VIAL SQ SCH ×3 (07:36→23:23)
[2021-03-02] MEDS: Piperacillin/Tazobactam 3.375 GM in 0.9 % Sodium Chloride Mini Bag 100 ML IVPB SCH ×3 (07:36→23:23)
[2021-03-02] MEDS: Pantoprazole 40 MG VIAL IVP SCH (07:36)
[2021-03-02] MEDS: Sennosides/Docusate Sodium TABLET PO SCH ×2 (07:37→20:27)
[2021-03-02 08:30] LABS: BUN/Creatinine Ratio 39 (6-26); Blood Urea Nitrogen 22 mg/dL (6-20); Calcium 8.7 mg/dL (8.6-10.3); Carbon Dioxide 25 mEq/L (23-29); Chloride 103 mEq/L (98-107); Glucose 125 mg/dL (70-105); Osmolality,Calculated 291 (280-300); Potassium 4.2 mEq/L (3.5-5.1); Sodium 138 mEq/L (136-145); eGFR For African Americans > 60 (> 60); eGFR For Non-African Americans > 60 (> 60)
[2021-03-02 08:45] LABS: ABG Base Excess 1 mEq/L (-2 to 3); ABG HCO3 28 mEq/L (21-27); ABG Oxygen Saturation 100 % (95-98); ABG PCO2 48 mmHg (35-45); ABG PH 7.37 pH Units (7.32-7.45); ABG PO2 187 mmHg (85-104); ABG TCO2 29 mEq/L (20-26); Blood Gas Modality AF; Blood Gas VT 420 cc
[2021-03-02 09:15] LABS: Influenza A PCR Negative (Negative); Influenza B PCR Negative (Negative); Resp. Syncytial Virus PCR Negative (Negative)
[2021-03-02 09:33] LABS: SARS-CoV-2 by PCR (In House) Negative (Negative)
[2021-03-02 11:47] LABS: Hematocrit 30.6 % (35.3-44.9); Mean Corpuscular HGB Conc 32.7 g/dL (31.6-35.5); Mean Corpuscular Hemoglobin 30.3 pg (28.0-33.3); Mean Corpuscular Volume 92.7 fL (83.0-100.0); Mean Platelet Volume 9.9 fL (9.4-12.4); Platelet Count 349 K/mcL (140-400); Red Cell Distribution Width 13.2 % (11.5-14.5); White Blood Count 10.4 K/mcL (4.3-11.1)
[2021-03-02 11:53] LABS: ABG Ionized Calcium 1.16 mmol/L (1.15-1.35)
[2021-03-02 11:55] LABS: INR 1.1; Prothrombin Time 12.5 Seconds (9.4-12.1)
[2021-03-02 11:58] LABS: Activated Partial Thrombo Time 29.5 Seconds (26.0-36.0)
[2021-03-02 12:19] LABS: Alanine Aminotransferase 57 Units/L (7-52); Albumin 3.5 g/dL (3.5-5.7); Albumin/Globulin Ratio 1.1 (1.1-2.2); Alkaline Phosphatase 43 Units/L (34-104); Aspartate Amino Transferase 35 Units/L (13-39); BUN/Creatinine Ratio 37 (6-26); Bilirubin,Direct 0.4 mg/dL (0.0-0.2); Bilirubin,Indirect 0.4 mg/dL (0.0-1.0); Bilirubin,Total 0.8 mg/dL (0.3-1.0); Blood Urea Nitrogen 19 mg/dL (6-20); Calcium 8.6 mg/dL (8.6-10.3); Carbon Dioxide 25 mEq/L (23-29); Chloride 102 mEq/L (98-107); Gamma Glutamyl Transpeptidase 81 Units/L (7-64); Globulin 3.1 g/dL (2.4-3.5); Glucose 123 mg/dL (70-105); Lactate Dehydrogenase 184 Units/L (140-271); Magnesium 2.1 mg/dL (1.6-2.6); Osmolality,Calculated 288 (280-300); Phosphorous 4.4 mg/dL (2.7-4.5); Sodium 137 mEq/L (136-145); Total Protein 6.6 g/dL (6.4-8.9); eGFR For African Americans > 60 (> 60); eGFR For Non-African Americans > 60 (> 60)
[2021-03-02 12:23] LABS: ABG Base Excess 1 mEq/L (-2 to 3); ABG HCO3 27 mEq/L (21-27); ABG Oxygen Saturation 100 % (95-98); ABG PCO2 48 mmHg (35-45); ABG PH 7.35 pH Units (7.32-7.45); ABG PO2 237 mmHg (85-104); ABG TCO2 28 mEq/L (20-26); Blood Gas Modality AF; Blood Gas VT 420 cc
[2021-03-02 16:22] LABS: BUN/Creatinine Ratio 39 (6-26); Blood Urea Nitrogen 19 mg/dL (6-20); Calcium 8.8 mg/dL (8.6-10.3); Carbon Dioxide 27 mEq/L (23-29); Chloride 102 mEq/L (98-107); Glucose 110 mg/dL (70-105); Osmolality,Calculated 287 (280-300); Potassium 4.1 mEq/L (3.5-5.1); Sodium 137 mEq/L (136-145); eGFR For African Americans > 60 (> 60); eGFR For Non-African Americans > 60 (> 60)
[2021-03-02 16:23] LABS: ABG Base Excess 1 mEq/L (-2 to 3); ABG HCO3 25 mEq/L (21-27); ABG Oxygen Saturation 100 % (95-98); ABG PCO2 40 mmHg (35-45); ABG PH 7.41 pH Units (7.32-7.45); ABG PO2 219 mmHg (85-104); ABG TCO2 26 mEq/L (20-26); Blood Gas Modality AF; Blood Gas VT 420 cc
[2021-03-02 20:22] LABS: Basophils # 0.1 K/mcL (0.0-0.2); Basophils % 0.4 %; Eosinophils # 0.5 K/mcL (0.0-0.6); Eosinophils % 3.9 %; Hematocrit 31.7 % (35.3-44.9); Hemoglobin 10.4 g/dL (11.5-15.4); Immature Granulocytes % 0.8 % (0-4); Lymphocytes % 7.2 %; Mean Corpuscular HGB Conc 32.8 g/dL (31.6-35.5); Mean Corpuscular Hemoglobin 30.3 pg (28.0-33.3); Mean Corpuscular Volume 92.4 fL (83.0-100.0); Mean Platelet Volume 9.8 fL (9.4-12.4); Monocytes # 1.3 K/mcL (0.0-1.3); Monocytes % 9.1 %; Neutrophils # 10.8 K/mcL (1.6-8.9); Platelet Count 376 K/mcL (140-400); Red Blood Count 3.43 M/mcL (3.82-4.97); Red Cell Distribution Width 13.1 % (11.5-14.5); Segmented Neutrophils % 78.6 %; White Blood Count 13.7 K/mcL (4.3-11.1)
[2021-03-02] MEDS: QUEtiapine Fumarate 100 MG TABLET PO SCH (20:27)
[2021-03-02 20:29] LABS: VBG Ionized Calcium 1.16 mmol/L (1.15-1.35)
[2021-03-02 20:29] LABS: INR 1.2; Prothrombin Time 13.2 Seconds (9.4-12.1)
[2021-03-02 20:32] LABS: Activated Partial Thrombo Time 30.7 Seconds (26.0-36.0)
[2021-03-02 20:45] LABS: ABG Base Excess 0 mEq/L (-2 to 3); ABG HCO3 24 mEq/L (21-27); ABG Oxygen Saturation 99 % (95-98); ABG PCO2 38 mmHg (35-45); ABG PH 7.41 pH Units (7.32-7.45); ABG PO2 124 mmHg (85-104); ABG TCO2 26 mEq/L (20-26); Blood Gas VT 420 cc
[2021-03-02 22:44] LABS: Alanine Aminotransferase 59 Units/L (7-52); Albumin 3.6 g/dL (3.5-5.7); Albumin/Globulin Ratio 1.1 (1.1-2.2); Alkaline Phosphatase 46 Units/L (34-104); Aspartate Amino Transferase 35 Units/L (13-39); BUN/Creatinine Ratio 34 (6-26); Bilirubin,Direct 0.4 mg/dL (0.0-0.2); Bilirubin,Indirect 0.5 mg/dL (0.0-1.0); Bilirubin,Total 0.9 mg/dL (0.3-1.0); Blood Urea Nitrogen 17 mg/dL (6-20); Calcium 8.9 mg/dL (8.6-10.3); Carbon Dioxide 24 mEq/L (23-29); Chloride 100 mEq/L (98-107); Gamma Glutamyl Transpeptidase 89 Units/L (7-64); Globulin 3.2 g/dL (2.4-3.5); Glucose 118 mg/dL (70-105); Lactate Dehydrogenase 199 Units/L (140-271); Magnesium 1.9 mg/dL (1.6-2.6); Osmolality,Calculated 281 (280-300); Phosphorous 3.6 mg/dL (2.7-4.5); Potassium 4.3 mEq/L (3.5-5.1); Sodium 134 mEq/L (136-145); Total Protein 6.8 g/dL (6.4-8.9); eGFR For African Americans > 60 (> 60); eGFR For Non-African Americans > 60 (> 60)
[2021-03-03 00:30] LABS: ABG Base Excess -1 mEq/L (-2 to 3); ABG HCO3 22 mEq/L (21-27); ABG Oxygen Saturation 99 % (95-98); ABG PCO2 31 mmHg (35-45); ABG PH 7.46 pH Units (7.32-7.45); ABG PO2 141 mmHg (85-104); ABG TCO2 23 mEq/L (20-26); Blood Gas VT 420 cc
[2021-03-03 00:38] LABS: BUN/Creatinine Ratio 31 (6-26); Blood Urea Nitrogen 15 mg/dL (6-20); Calcium 8.8 mg/dL (8.6-10.3); Carbon Dioxide 24 mEq/L (23-29); Chloride 101 mEq/L (98-107); Glucose 108 mg/dL (70-105); Osmolality,Calculated 281 (280-300); Sodium 135 mEq/L (136-145); eGFR For African Americans > 60 (> 60); eGFR For Non-African Americans > 60 (> 60)
[2021-03-03 01:04] LABS: Bilirubin,Urine Small (Negative); Blood,Urine Trace (Negative); Clarity,Urine Clear (Clear); Color,Urine Yellow (Yellow); Glucose,Urine (UA) Normal (Normal); Ketones,Urine 80 mg/dL (Negative); Leukocyte Esterase,Urine Trace (Negative); Nitrite,Urine Negative (Negative); Protein,Urine 30 mg/dL (Neg-Trace); RBC,Urine 30-50 per hpf (0-3); Specific Gravity,Urine > 1.030 (1.010-1.025)
[2021-03-03] MEDS: Ipratropium/Albuterol Neb 3 ML IH SCH ×5 (03:45→19:51)
[2021-03-03] MEDS: Artificial Tears SOLN 15 ML BOTTLE BOTH EYES SCH ×5 (03:52→20:09)
[2021-03-03 04:10] LABS: VBG Ionized Calcium 1.13 mmol/L (1.15-1.35)
[2021-03-03 04:29] LABS: Basophils % 0.3 %; Eosinophils # 0.4 K/mcL (0.0-0.6); Hematocrit 30.3 % (35.3-44.9); INR 1.2; Immature Granulocytes % 0.7 % (0-4); Lymphocytes # 1.5 K/mcL (0.6-4.6); Lymphocytes % 10.8 %; Mean Corpuscular Hemoglobin 30.4 pg (28.0-33.3); Mean Corpuscular Volume 92.1 fL (83.0-100.0); Mean Platelet Volume 10.1 fL (9.4-12.4); Monocytes # 1.3 K/mcL (0.0-1.3); Monocytes % 9.1 %; Neutrophils # 10.5 K/mcL (1.6-8.9); Platelet Count 390 K/mcL (140-400); Prothrombin Time 13.6 Seconds (9.4-12.1); Red Blood Count 3.29 M/mcL (3.82-4.97); Segmented Neutrophils % 76.1 %; White Blood Count 13.9 K/mcL (4.3-11.1)
[2021-03-03 04:30] LABS: ABG Base Excess -1 mEq/L (-2 to 3); ABG HCO3 23 mEq/L (21-27); ABG Oxygen Saturation 99 % (95-98); ABG PCO2 35 mmHg (35-45); ABG PH 7.43 pH Units (7.32-7.45); ABG PO2 117 mmHg (85-104); ABG TCO2 24 mEq/L (20-26); Blood Gas VT 420 cc
[2021-03-03 04:32] LABS: Activated Partial Thrombo Time 28.9 Seconds (26.0-36.0)
[2021-03-03 04:37] LABS: Alanine Aminotransferase 55 Units/L (7-52); Albumin 3.5 g/dL (3.5-5.7); Albumin/Globulin Ratio 1.1 (1.1-2.2); Alkaline Phosphatase 46 Units/L (34-104); Aspartate Amino Transferase 31 Units/L (13-39); BUN/Creatinine Ratio 29 (6-26); Bilirubin,Direct 0.4 mg/dL (0.0-0.2); Bilirubin,Indirect 0.4 mg/dL (0.0-1.0); Bilirubin,Total 0.8 mg/dL (0.3-1.0); Blood Urea Nitrogen 14 mg/dL (6-20); Calcium 8.7 mg/dL (8.6-10.3); Carbon Dioxide 24 mEq/L (23-29); Chloride 100 mEq/L (98-107); Gamma Glutamyl Transpeptidase 93 Units/L (7-64); Globulin 3.2 g/dL (2.4-3.5); Glucose 114 mg/dL (70-105); Lactate Dehydrogenase 199 Units/L (140-271); Magnesium 1.7 mg/dL (1.6-2.6); Osmolality,Calculated 283 (280-300); Phosphorous 4.1 mg/dL (2.7-4.5); Potassium 3.9 mEq/L (3.5-5.1); Sodium 136 mEq/L (136-145); Total Protein 6.7 g/dL (6.4-8.9); eGFR For African Americans > 60 (> 60); eGFR For Non-African Americans > 60 (> 60)
[2021-03-03] MEDS: Potassium Chloride 40 MEQ/200 ML BAG IVPB PRN (04:47)
[2021-03-03] MEDS: FentaNYL (PF) 2,500 MCG/50 ML IV.SOLN IVC SCH ×2 (05:39→20:32)
[2021-03-03] MEDS: Insulin LISPRO 300 UNITS/3 ML VIAL SUBQ SCH ×3 (06:03→17:30)
[2021-03-03] MEDS: *HR* Heparin 5,000 UNIT/ML VIAL SQ SCH ×2 (07:58→15:04)
[2021-03-03] MEDS: Piperacillin/Tazobactam 3.375 GM in 0.9 % Sodium Chloride Mini Bag 100 ML IVPB SCH ×2 (08:00→15:04)
[2021-03-03] MEDS: Pantoprazole 40 MG VIAL IVP SCH (08:03)
[2021-03-03] MEDS: Sennosides/Docusate Sodium TABLET PO SCH ×2 (08:04→21:36)
[2021-03-03] MEDS: Chlorhexidine Rinse 15 ML MOUTHWASH MM SCH ×2 (08:04→21:34)
[2021-03-03 08:39] LABS: BUN/Creatinine Ratio 28 (6-26); Blood Urea Nitrogen 13 mg/dL (6-20); Calcium 8.7 mg/dL (8.6-10.3); Carbon Dioxide 25 mEq/L (23-29); Chloride 100 mEq/L (98-107); Glucose 138 mg/dL (70-105); Osmolality,Calculated 280 (280-300); Potassium 4.5 mEq/L (3.5-5.1); Sodium 134 mEq/L (136-145); eGFR For African Americans > 60 (> 60); eGFR For Non-African Americans > 60 (> 60)
[2021-03-03 08:48] LABS: ABG Base Excess 0 mEq/L (-2 to 3); ABG HCO3 26 mEq/L (21-27); ABG Oxygen Saturation 98 % (95-98); ABG PCO2 43 mmHg (35-45); ABG PH 7.38 pH Units (7.32-7.45); ABG PO2 114 mmHg (85-104); ABG TCO2 27 mEq/L (20-26); Blood Gas VT 420 cc
[2021-03-03 11:55] LABS: ABG Base Excess 0 mEq/L (-2 to 3); ABG HCO3 26 mEq/L (21-27); ABG Oxygen Saturation 96 % (95-98); ABG PCO2 43 mmHg (35-45); ABG PH 7.38 pH Units (7.32-7.45); ABG PO2 82 mmHg (85-104); ABG TCO2 27 mEq/L (20-26); Blood Gas Modality ASSIST CONTROL; Blood Gas VT 420 cc
[2021-03-03 12:22] LABS: Basophils % 0.2 %; Eosinophils # 0.4 K/mcL (0.0-0.6); Eosinophils % 2.4 %; Hematocrit 31.2 % (35.3-44.9); Hemoglobin 10.3 g/dL (11.5-15.4); Immature Granulocytes % 0.8 % (0-4); Lymphocytes # 1.2 K/mcL (0.6-4.6); Lymphocytes % 8.5 %; Mean Corpuscular Hemoglobin 30.7 pg (28.0-33.3); Mean Corpuscular Volume 92.9 fL (83.0-100.0); Mean Platelet Volume 9.8 fL (9.4-12.4); Monocytes # 1.3 K/mcL (0.0-1.3); Neutrophils # 11.5 K/mcL (1.6-8.9); Platelet Count 391 K/mcL (140-400); Red Blood Count 3.36 M/mcL (3.82-4.97); Red Cell Distribution Width 13.1 % (11.5-14.5); Segmented Neutrophils % 79.1 %; White Blood Count 14.6 K/mcL (4.3-11.1)
[2021-03-03 12:24] LABS: VBG Ionized Calcium 1.18 mmol/L (1.15-1.35)
[2021-03-03 12:44] LABS: INR 1.2; Prothrombin Time 13.3 Seconds (9.4-12.1)
[2021-03-03 12:45] LABS: Albumin 3.6 g/dL (3.5-5.7); Albumin/Globulin Ratio 1.1 (1.1-2.2); BUN/Creatinine Ratio 24 (6-26); Bilirubin,Direct 0.5 mg/dL (0.0-0.2); Bilirubin,Indirect 0.4 mg/dL (0.0-1.0); Bilirubin,Total 0.9 mg/dL (0.3-1.0); Blood Urea Nitrogen 11 mg/dL (6-20); Calcium 8.9 mg/dL (8.6-10.3); Carbon Dioxide 24 mEq/L (23-29); Chloride 100 mEq/L (98-107); Globulin 3.3 g/dL (2.4-3.5); Glucose 140 mg/dL (70-105); Magnesium 2.1 mg/dL (1.6-2.6); Osmolality,Calculated 280 (280-300); Phosphorous 4.1 mg/dL (2.7-4.5); Potassium 4.5 mEq/L (3.5-5.1); Sodium 134 mEq/L (136-145); Total Protein 6.9 g/dL (6.4-8.9); eGFR For African Americans > 60 (> 60); eGFR For Non-African Americans > 60 (> 60)
[2021-03-03 12:47] LABS: Activated Partial Thrombo Time 30.2 Seconds (26.0-36.0)
[2021-03-03 16:34] LABS: BUN/Creatinine Ratio 26 (6-26); Blood Urea Nitrogen 11 mg/dL (6-20); Calcium 8.9 mg/dL (8.6-10.3); Carbon Dioxide 26 mEq/L (23-29); Chloride 100 mEq/L (98-107); Glucose 132 mg/dL (70-105); Osmolality,Calculated 279 (280-300); Potassium 4.2 mEq/L (3.5-5.1); Sodium 134 mEq/L (136-145); eGFR For African Americans > 60 (> 60); eGFR For Non-African Americans > 60 (> 60)
[2021-03-03 16:56] LABS: ABG Base Excess 1 mEq/L (-2 to 3); ABG HCO3 26 mEq/L (21-27); ABG Oxygen Saturation 100 % (95-98); ABG PCO2 43 mmHg (35-45); ABG PO2 180 mmHg (85-104); ABG TCO2 28 mEq/L (20-26); Blood Gas VT 420 cc
[2021-03-03] MEDS: *HR* LORazepam 2 MG/ML VIAL IVP PRN (17:59)
[2021-03-03 20:21] LABS: ABG Base Excess 0 mEq/L (-2 to 3); ABG HCO3 25 mEq/L (21-27); ABG Oxygen Saturation 99 % (95-98); ABG PCO2 40 mmHg (35-45); ABG PO2 160 mmHg (85-104); ABG TCO2 26 mEq/L (20-26); Blood Gas VT 420 cc
[2021-03-03 20:26] LABS: Basophils # 0.1 K/mcL (0.0-0.2); Basophils % 0.4 %; Eosinophils # 0.4 K/mcL (0.0-0.6); Eosinophils % 3.1 %; Hematocrit 30.7 % (35.3-44.9); Immature Granulocytes % 0.8 % (0-4); Lymphocytes # 1.4 K/mcL (0.6-4.6); Lymphocytes % 10.4 %; Mean Corpuscular HGB Conc 32.6 g/dL (31.6-35.5); Mean Corpuscular Hemoglobin 30.2 pg (28.0-33.3); Mean Corpuscular Volume 92.7 fL (83.0-100.0); Mean Platelet Volume 9.5 fL (9.4-12.4); Monocytes # 1.2 K/mcL (0.0-1.3); Monocytes % 8.6 %; Neutrophils # 10.3 K/mcL (1.6-8.9); Platelet Count 370 K/mcL (140-400); Red Blood Count 3.31 M/mcL (3.82-4.97); Red Cell Distribution Width 13.1 % (11.5-14.5); Segmented Neutrophils % 76.7 %; White Blood Count 13.4 K/mcL (4.3-11.1)
[2021-03-03 20:36] LABS: VBG Ionized Calcium 1.19 mmol/L (1.15-1.35)
[2021-03-03 20:39] LABS: INR 1.3; Prothrombin Time 14.1 Seconds (9.4-12.1)
[2021-03-03 20:55] LABS: Alanine Aminotransferase 48 Units/L (7-52); Albumin 3.5 g/dL (3.5-5.7); Albumin/Globulin Ratio 1.1 (1.1-2.2); Alkaline Phosphatase 47 Units/L (34-104); Aspartate Amino Transferase 26 Units/L (13-39); BUN/Creatinine Ratio 24 (6-26); Bilirubin,Direct 0.3 mg/dL (0.0-0.2); Bilirubin,Indirect 0.6 mg/dL (0.0-1.0); Bilirubin,Total 0.9 mg/dL (0.3-1.0); Blood Urea Nitrogen 11 mg/dL (6-20); Carbon Dioxide 24 mEq/L (23-29); Chloride 101 mEq/L (98-107); Gamma Glutamyl Transpeptidase 98 Units/L (7-64); Globulin 3.3 g/dL (2.4-3.5); Glucose 115 mg/dL (70-105); Lactate Dehydrogenase 211 Units/L (140-271); Magnesium 1.9 mg/dL (1.6-2.6); Osmolality,Calculated 278 (280-300); Phosphorous 3.8 mg/dL (2.7-4.5); Potassium 3.9 mEq/L (3.5-5.1); Sodium 134 mEq/L (136-145); Total Protein 6.8 g/dL (6.4-8.9); eGFR For African Americans > 60 (> 60); eGFR For Non-African Americans > 60 (> 60)
[2021-03-03] MEDS: QUEtiapine Fumarate 100 MG TABLET PO SCH (21:34)
[2021-03-04 00:14] LABS: ABG Base Excess 1 mEq/L (-2 to 3); ABG HCO3 25 mEq/L (21-27); ABG Oxygen Saturation 100 % (95-98); ABG PCO2 39 mmHg (35-45); ABG PH 7.42 pH Units (7.32-7.45); ABG PO2 223 mmHg (85-104); ABG TCO2 26 mEq/L (20-26); Blood Gas VT 420 cc
[2021-03-04] MEDS: Ipratropium/Albuterol Neb 3 ML IH SCH ×7 (00:14→23:02)
[2021-03-04] MEDS: Artificial Tears SOLN 15 ML BOTTLE BOTH EYES SCH ×6 (00:23→20:04)
[2021-03-04] MEDS: Piperacillin/Tazobactam 3.375 GM in 0.9 % Sodium Chloride Mini Bag 100 ML IVPB SCH ×3 (00:24→15:56)
[2021-03-04] MEDS: *HR* Heparin 5,000 UNIT/ML VIAL SQ SCH ×3 (00:26→15:55)
[2021-03-04] MEDS: Insulin LISPRO 300 UNITS/3 ML VIAL SUBQ SCH ×4 (00:29→19:57)
[2021-03-04 03:05] LABS: BUN/Creatinine Ratio 23 (6-26); Blood Urea Nitrogen 11 mg/dL (6-20); Calcium 9.1 mg/dL (8.6-10.3); Carbon Dioxide 24 mEq/L (23-29); Chloride 100 mEq/L (98-107); Glucose 108 mg/dL (70-105); Osmolality,Calculated 282 (280-300); Potassium 4.2 mEq/L (3.5-5.1); Sodium 136 mEq/L (136-145); eGFR For African Americans > 60 (> 60); eGFR For Non-African Americans > 60 (> 60)
[2021-03-04 04:16] LABS: ABG Base Excess 0 mEq/L (-2 to 3); ABG HCO3 25 mEq/L (21-27); ABG Oxygen Saturation 99 % (95-98); ABG PCO2 39 mmHg (35-45); ABG PH 7.41 pH Units (7.32-7.45); ABG PO2 136 mmHg (85-104); ABG TCO2 26 mEq/L (20-26); Blood Gas VT 420 cc
[2021-03-04 05:15] LABS: Basophils % 0.3 %; Eosinophils # 0.5 K/mcL (0.0-0.6); Eosinophils % 3.6 %; Hematocrit 29.3 % (35.3-44.9); Hemoglobin 9.6 g/dL (11.5-15.4); Immature Granulocytes % 1.4 % (0-4); Lymphocytes # 1.5 K/mcL (0.6-4.6); Lymphocytes % 11.9 %; Mean Corpuscular HGB Conc 32.8 g/dL (31.6-35.5); Mean Corpuscular Hemoglobin 30.3 pg (28.0-33.3); Mean Corpuscular Volume 92.4 fL (83.0-100.0); Monocytes # 1.2 K/mcL (0.0-1.3); Monocytes % 9.3 %; Neutrophils # 9.3 K/mcL (1.6-8.9); Nucleated Red Blood Cells 0.2 /100 WBC (0); Platelet Count 376 K/mcL (140-400); Red Blood Count 3.17 M/mcL (3.82-4.97); Red Cell Distribution Width 13.1 % (11.5-14.5); Segmented Neutrophils % 73.5 %; White Blood Count 12.6 K/mcL (4.3-11.1)
[2021-03-04 05:23] LABS: INR 1.2; Prothrombin Time 13.9 Seconds (9.4-12.1)
[2021-03-04 05:25] LABS: Albumin 3.4 g/dL (3.5-5.7); Albumin/Globulin Ratio 1.1 (1.1-2.2); Bilirubin,Direct 0.4 mg/dL (0.0-0.2); Bilirubin,Indirect 0.4 mg/dL (0.0-1.0); Bilirubin,Total 0.8 mg/dL (0.3-1.0); Globulin 3.2 g/dL (2.4-3.5); Magnesium 1.8 mg/dL (1.6-2.6); Total Protein 6.6 g/dL (6.4-8.9)
[2021-03-04 05:33] LABS: VBG Ionized Calcium 1.15 mmol/L (1.15-1.35)
[2021-03-04] MEDS: FentaNYL (PF) 2,500 MCG/50 ML IV.SOLN IVC SCH (07:28)
[2021-03-04 08:16] LABS: ABG Base Excess 0 mEq/L (-2 to 3); ABG HCO3 25 mEq/L (21-27); ABG Oxygen Saturation 97 % (95-98); ABG PCO2 39 mmHg (35-45); ABG PH 7.41 pH Units (7.32-7.45); ABG PO2 93 mmHg (85-104); ABG TCO2 26 mEq/L (20-26); Blood Gas VT 420 cc
[2021-03-04] MEDS: Sennosides/Docusate Sodium TABLET PO SCH ×3 (08:16→20:02)
[2021-03-04] MEDS: Chlorhexidine Rinse 15 ML MOUTHWASH MM SCH ×2 (08:17→20:02)
[2021-03-04] MEDS: Pantoprazole 40 MG VIAL IVP SCH (08:17)
[2021-03-04 11:57] LABS: ABG Base Excess 0 mEq/L (-2 to 3); ABG HCO3 26 mEq/L (21-27); ABG Oxygen Saturation 99 % (95-98); ABG PCO2 44 mmHg (35-45); ABG PH 7.38 pH Units (7.32-7.45); ABG PO2 138 mmHg (85-104); ABG TCO2 27 mEq/L (20-26); Blood Gas Modality ASSIST CONTROL; Blood Gas VT 420 cc
[2021-03-04] MEDS: Scopolamine Patch 1.5 MG PATCH.TD72 TD SCH (19:59)
[2021-03-04] MEDS: QUEtiapine Fumarate 100 MG TABLET PO SCH (20:02)
[2021-03-05] MEDS: *HR* Heparin 5,000 UNIT/ML VIAL SQ SCH ×4 (01:49→23:47)
[2021-03-05] MEDS: Piperacillin/Tazobactam 3.375 GM in 0.9 % Sodium Chloride Mini Bag 100 ML IVPB SCH ×4 (01:49→23:49)
[2021-03-05] MEDS: Insulin LISPRO 300 UNITS/3 ML VIAL SUBQ SCH ×5 (01:50→23:40)
[2021-03-05] MEDS: Artificial Tears SOLN 15 ML BOTTLE BOTH EYES SCH ×7 (01:50→23:33)
[2021-03-05] MEDS: Ipratropium/Albuterol Neb 3 ML IH SCH ×6 (03:39→23:31)
[2021-03-05 04:18] LABS: ABG Base Excess 1 mEq/L (-2 to 3); ABG HCO3 25 mEq/L (21-27); ABG Oxygen Saturation 100 % (95-98); ABG PCO2 37 mmHg (35-45); ABG PH 7.44 pH Units (7.32-7.45); ABG PO2 200 mmHg (85-104); ABG TCO2 26 mEq/L (20-26); Blood Gas Modality ASSIST CONTROL; Blood Gas VT 420 cc
[2021-03-05 04:42] LABS: Hematocrit 28.6 % (35.3-44.9); Hemoglobin 9.2 g/dL (11.5-15.4); Mean Corpuscular HGB Conc 32.2 g/dL (31.6-35.5); Mean Corpuscular Hemoglobin 30.1 pg (28.0-33.3); Mean Corpuscular Volume 93.5 fL (83.0-100.0); Platelet Count 354 K/mcL (140-400); Red Blood Count 3.06 M/mcL (3.82-4.97); Red Cell Distribution Width 13.3 % (11.5-14.5); White Blood Count 11.6 K/mcL (4.3-11.1)
[2021-03-05 05:07] LABS: BUN/Creatinine Ratio 27 (6-26); Blood Urea Nitrogen 13 mg/dL (6-20); Calcium 8.9 mg/dL (8.6-10.3); Carbon Dioxide 24 mEq/L (23-29); Chloride 102 mEq/L (98-107); Glucose 120 mg/dL (70-105); Osmolality,Calculated 289 (280-300); Potassium 3.3 mEq/L (3.5-5.1); Sodium 139 mEq/L (136-145); eGFR For African Americans > 60 (> 60); eGFR For Non-African Americans > 60 (> 60)
[2021-03-05] MEDS ORDERED: Potassium Chloride 40 MEQ/200 ML BAG IVPB PRN (05:54)
[2021-03-05] MEDS: Potassium Chloride 40 MEQ/200 ML BAG IVPB PRN ×3 (07:34→17:41)
[2021-03-05] MEDS: Chlorhexidine Rinse 15 ML MOUTHWASH MM SCH ×2 (09:01→20:58)
[2021-03-05] MEDS: Pantoprazole 40 MG VIAL IVP SCH (09:01)
[2021-03-05] MEDS: Sennosides/Docusate Sodium TABLET PO SCH ×2 (09:01→20:56)
[2021-03-05] MEDS: FentaNYL (PF) 1,000 MCG/100 ML IV.SOLN IVC SCH ×2 (16:12→17:48)
[2021-03-05] MEDS: QUEtiapine Fumarate 100 MG TABLET PO SCH (21:00)
[2021-03-06] MEDS: Potassium Chloride 40 MEQ/200 ML BAG IVPB PRN (01:29)
[2021-03-06] MEDS: Ipratropium/Albuterol Neb 3 ML IH SCH ×6 (03:21→23:01)
[2021-03-06] MEDS: Artificial Tears SOLN 15 ML BOTTLE BOTH EYES SCH ×5 (03:36→19:35)
[2021-03-06 03:58] LABS: Basophils % 0.4 %; Eosinophils # 0.5 K/mcL (0.0-0.6); Eosinophils % 4.8 %; Hematocrit 27.7 % (35.3-44.9); Immature Granulocytes % 1.1 % (0-4); Lymphocytes # 1.4 K/mcL (0.6-4.6); Lymphocytes % 14.2 %; Mean Corpuscular HGB Conc 32.5 g/dL (31.6-35.5); Mean Corpuscular Hemoglobin 30.1 pg (28.0-33.3); Mean Corpuscular Volume 92.6 fL (83.0-100.0); Mean Platelet Volume 9.6 fL (9.4-12.4); Monocytes # 1.1 K/mcL (0.0-1.3); Monocytes % 11.1 %; Neutrophils # 6.8 K/mcL (1.6-8.9); Platelet Count 333 K/mcL (140-400); Red Blood Count 2.99 M/mcL (3.82-4.97); Red Cell Distribution Width 13.2 % (11.5-14.5); Segmented Neutrophils % 68.4 %
[2021-03-06] MEDS: FentaNYL (PF) 1,000 MCG/100 ML IV.SOLN IVC SCH ×2 (04:12→19:50)
[2021-03-06 04:18] LABS: Magnesium 1.6 mg/dL (1.6-2.6); Phosphorous 3.7 mg/dL (2.7-4.5)
[2021-03-06 06:00] LABS: ABG Base Excess 0 mEq/L (-2 to 3); ABG HCO3 26 mEq/L (21-27); ABG Oxygen Saturation 99 % (95-98); ABG PCO2 49 mmHg (35-45); ABG PH 7.34 pH Units (7.32-7.45); ABG PO2 130 mmHg (85-104); ABG TCO2 28 mEq/L (20-26); Blood Gas Modality ASSIST CONTROL; Blood Gas VT 420 cc
[2021-03-06] MEDS: Insulin LISPRO 300 UNITS/3 ML VIAL SUBQ SCH ×3 (06:07→18:32)
[2021-03-06 06:25] LABS: BUN/Creatinine Ratio 23 (6-26); Blood Urea Nitrogen 11 mg/dL (6-20); Calcium 8.9 mg/dL (8.6-10.3); Carbon Dioxide 27 mEq/L (23-29); Chloride 105 mEq/L (98-107); Glucose 147 mg/dL (70-105); Osmolality,Calculated 286 (280-300); Potassium 4.4 mEq/L (3.5-5.1); Sodium 137 mEq/L (136-145); eGFR For African Americans > 60 (> 60); eGFR For Non-African Americans > 60 (> 60)
[2021-03-06] MEDS: Chlorhexidine Rinse 15 ML MOUTHWASH MM SCH ×2 (07:46→19:49)
[2021-03-06] MEDS: Pantoprazole 40 MG VIAL IVP SCH (07:46)
[2021-03-06] MEDS: *HR* Heparin 5,000 UNIT/ML VIAL SQ SCH ×2 (07:47→15:34)
[2021-03-06] MEDS: Piperacillin/Tazobactam 3.375 GM in 0.9 % Sodium Chloride Mini Bag 100 ML IVPB SCH ×2 (07:48→15:31)
[2021-03-06] MEDS: Sennosides/Docusate Sodium TABLET PO SCH ×2 (07:49→19:49)
[2021-03-06 10:08] LABS: BUN/Creatinine Ratio 26 (6-26); Blood Urea Nitrogen 11 mg/dL (6-20); Calcium 8.8 mg/dL (8.6-10.3); Carbon Dioxide 28 mEq/L (23-29); Chloride 106 mEq/L (98-107); Glucose 145 mg/dL (70-105); Magnesium 1.9 mg/dL (1.6-2.6); Osmolality,Calculated 284 (280-300); Potassium 4.4 mEq/L (3.5-5.1); Sodium 136 mEq/L (136-145); eGFR For African Americans > 60 (> 60); eGFR For Non-African Americans > 60 (> 60)
[2021-03-06] MEDS: Dexmedetomidine HCl 400 MCG/100 ML MLS IVC SCH ×3 (14:17→22:53)
[2021-03-06] MEDS: QUEtiapine Fumarate 100 MG TABLET PO SCH (19:49)
[2021-03-07] MEDS: Piperacillin/Tazobactam 3.375 GM in 0.9 % Sodium Chloride Mini Bag 100 ML IVPB SCH ×4 (03:59→23:10)
[2021-03-07] MEDS: Artificial Tears SOLN 15 ML BOTTLE BOTH EYES SCH ×7 (04:04→23:11)
[2021-03-07] MEDS: *HR* Heparin 5,000 UNIT/ML VIAL SQ SCH ×4 (04:04→23:11)
[2021-03-07] MEDS: Insulin LISPRO 300 UNITS/3 ML VIAL SUBQ SCH ×5 (04:05→23:12)
[2021-03-07] MEDS: Ipratropium/Albuterol Neb 3 ML IH SCH ×6 (04:25→23:19)
[2021-03-07 05:01] LABS: VBG Ionized Calcium 1.24 mmol/L (1.15-1.35)
[2021-03-07] MEDS: Dexmedetomidine HCl 400 MCG/100 ML MLS IVC SCH ×4 (05:06→21:19)
[2021-03-07 05:27] LABS: Calcium 8.8 mg/dL (8.6-10.3); Carbon Dioxide 29 mEq/L (23-29); Chloride 106 mEq/L (98-107); Glucose 134 mg/dL (70-105); Magnesium 1.8 mg/dL (1.6-2.6); Phosphorous 3.9 mg/dL (2.7-4.5); Potassium 3.7 mEq/L (3.5-5.1); Sodium 138 mEq/L (136-145); eGFR For African Americans > 60 (> 60); eGFR For Non-African Americans > 60 (> 60)
[2021-03-07 05:31] LABS: BUN/Creatinine Ratio 32 (6-26); Blood Urea Nitrogen 13 mg/dL (6-20); Osmolality,Calculated 288 (280-300)
[2021-03-07 06:35] LABS: Platelet Estimate Normal (Normal); Reactive Lymphocytes Present (Not Present)
[2021-03-07 06:38] LABS: Basophils % 0.5 %; Eosinophils # 0.5 K/mcL (0.0-0.6); Eosinophils % 6.1 %; Hematocrit 28.2 % (35.3-44.9); Hemoglobin 9.2 g/dL (11.5-15.4); Immature Granulocytes % 1.5 % (0-4); Lymphocytes # 1.5 K/mcL (0.6-4.6); Mean Corpuscular HGB Conc 32.6 g/dL (31.6-35.5); Mean Corpuscular Hemoglobin 30.8 pg (28.0-33.3); Mean Corpuscular Volume 94.3 fL (83.0-100.0); Monocytes # 0.9 K/mcL (0.0-1.3); Neutrophils # 4.9 K/mcL (1.6-8.9); Nucleated Red Blood Cells 0.3 /100 WBC (0); Platelet Count 384 K/mcL (140-400); Red Blood Count 2.99 M/mcL (3.82-4.97); Red Cell Distribution Width 13.3 % (11.5-14.5); Segmented Neutrophils % 61.9 %; White Blood Count 7.9 K/mcL (4.3-11.1)
[2021-03-07 06:53] LABS: ABG Base Excess 3 mEq/L (-2 to 3); ABG HCO3 27 mEq/L (21-27); ABG Oxygen Saturation 86 % (95-98); ABG PCO2 42 mmHg (35-45); ABG PH 7.42 pH Units (7.32-7.45); ABG PO2 50 mmHg (85-104); ABG TCO2 29 mEq/L (20-26); Blood Gas Modality ASSIST CONTROL; Blood Gas VT 420 cc
[2021-03-07] MEDS: Sennosides/Docusate Sodium TABLET PO SCH ×2 (11:05→21:08)
[2021-03-07] MEDS: Chlorhexidine Rinse 15 ML MOUTHWASH MM SCH ×2 (11:05→21:09)
[2021-03-07] MEDS: FentaNYL (PF) 1,000 MCG/100 ML IV.SOLN IVC SCH (11:05)
[2021-03-07] MEDS: Pantoprazole 40 MG VIAL IVP SCH ×2 (11:06→11:14)
[2021-03-07] MEDS: Potassium Chloride 40 MEQ/200 ML BAG IVPB PRN ×2 (11:15→12:45)
[2021-03-07] MEDS: Scopolamine Patch 1.5 MG PATCH.TD72 TD SCH (17:38)
[2021-03-07] MEDS: QUEtiapine Fumarate 100 MG TABLET PO SCH (21:08)
[2021-03-07] MEDS ORDERED: *HR* Labetalol 20 MG/4 ML SYRINGE IVP ONE (22:36)
[2021-03-08] MEDS: Dexmedetomidine HCl 400 MCG/100 ML MLS IVC SCH ×4 (00:47→11:47)
[2021-03-08] MEDS ORDERED: *HR* Labetalol 20 MG/4 ML SYRINGE IVP PRN (02:13)
[2021-03-08] MEDS: Ipratropium/Albuterol Neb 3 ML IH SCH ×6 (03:18→23:41)
[2021-03-08] MEDS: Artificial Tears SOLN 15 ML BOTTLE BOTH EYES SCH ×5 (03:25→22:24)
[2021-03-08] MEDS: FentaNYL (PF) 1,000 MCG/100 ML IV.SOLN IVC SCH ×2 (03:56→18:08)
[2021-03-08 04:37] LABS: ABG Base Excess 4 mEq/L (-2 to 3); ABG HCO3 26 mEq/L (21-27); ABG Oxygen Saturation 100 % (95-98); ABG PCO2 32 mmHg (35-45); ABG PH 7.52 pH Units (7.32-7.45); ABG PO2 184 mmHg (85-104); ABG TCO2 27 mEq/L (20-26); Blood Gas Modality ASSIST CONTROL; Blood Gas VT 420 cc
[2021-03-08 05:55] LABS: Basophils % 0.5 %; Eosinophils # 0.2 K/mcL (0.0-0.6); Eosinophils % 3.1 %; Hematocrit 31.3 % (35.3-44.9); Hemoglobin 9.8 g/dL (11.5-15.4); Immature Granulocytes % 1.9 % (0-4); Immature Platelets 4.1 % (1.1-6.1); Lymphocytes # 1.8 K/mcL (0.6-4.6); Mean Corpuscular HGB Conc 31.3 g/dL (31.6-35.5); Mean Corpuscular Hemoglobin 29.7 pg (28.0-33.3); Mean Corpuscular Volume 94.8 fL (83.0-100.0); Mean Platelet Volume 10.5 fL (9.4-12.4); Monocytes # 0.8 K/mcL (0.0-1.3); Neutrophils # 4.5 K/mcL (1.6-8.9); Nucleated Red Blood Cells 0.4 /100 WBC (0); Platelet Count 377 K/mcL (140-400); Red Cell Distribution Width 13.1 % (11.5-14.5); Segmented Neutrophils % 59.5 %; White Blood Count 7.5 K/mcL (4.3-11.1)
[2021-03-08 05:59] LABS: VBG HCO3 23 mEq/L (21-27); VBG Ionized Calcium 0.95 mmol/L (1.15-1.35); VBG PCO2 25 mmHg (41-51); VBG PH 7.59 pH Units (7.32-7.42); VBG PO2 140 mmHg (25-50)
[2021-03-08] MEDS: Insulin LISPRO 300 UNITS/3 ML VIAL SUBQ SCH ×3 (06:03→18:08)
[2021-03-08] MEDS: Calcium Gluconate 1gm/50mL 1 GM/50 ML BAG IVPB PRN (06:06)
[2021-03-08 06:15] LABS: BUN/Creatinine Ratio 31 (6-26); Blood Urea Nitrogen 17 mg/dL (6-20); Calcium 8.9 mg/dL (8.6-10.3); Carbon Dioxide 25 mEq/L (23-29); Chloride 105 mEq/L (98-107); Glucose 131 mg/dL (70-105); Osmolality,Calculated 281 (280-300); Phosphorous 2.6 mg/dL (2.7-4.5); Potassium 3.9 mEq/L (3.5-5.1); Sodium 134 mEq/L (136-145); eGFR For African Americans > 60 (> 60); eGFR For Non-African Americans > 60 (> 60)
[2021-03-08] MEDS: *HR* Heparin 5,000 UNIT/ML VIAL SQ SCH ×2 (08:11→17:42)
[2021-03-08] MEDS: Chlorhexidine Rinse 15 ML MOUTHWASH MM SCH (08:11)
[2021-03-08] MEDS: Sennosides/Docusate Sodium TABLET PO SCH (08:13)
[2021-03-08 09:29] LABS: Magnesium 1.8 mg/dL (1.6-2.6)
[2021-03-08] MEDS: Piperacillin/Tazobactam 3.375 GM in 0.9 % Sodium Chloride Mini Bag 100 ML IVPB SCH ×2 (10:04→18:02)
[2021-03-08] MEDS ORDERED: Potassium Phosphate 44 MEQ in 0.9 % Sodium Chloride 250 ML IVPB PRN (10:17)
[2021-03-08 14:11] LABS: VBG Ionized Calcium 1.12 mmol/L (1.15-1.35)
[2021-03-08] MEDS ORDERED: Acetaminophen IV 1,000 MG/100 ML BAG IVPB ONE (14:18)
[2021-03-08] MEDS: *HR* LORazepam 2 MG/ML VIAL IVP PRN (17:07)
[2021-03-08] MEDS: Scopolamine Patch 1.5 MG PATCH.TD72 TD SCH (17:22)
[2021-03-08] MEDS ORDERED: *HR* Dextrose 50 % in Water (Syg) 50 ML SYRINGE IVP PRN (18:46)
[2021-03-08] MEDS ORDERED: Artificial Tears SOLN 15 ML BOTTLE BOTH EYES PRN (18:46)
[2021-03-08] MEDS ORDERED: Albuterol 2.5 MG/3 ML NEBULIZER IH PRN (18:46)
[2021-03-08] MEDS ORDERED: Dextrose Gel 15 GM/37.5 ML TUBE PO PRN ×2 (18:46)
[2021-03-08] MEDS ORDERED: D5% in Water 1,000 ML IVC PRN (18:46)
[2021-03-08] MEDS: *HR* FentaNYL (PF) 100 MCG/2 ML VIAL IVP PRN ×2 (18:52→21:00)
[2021-03-08] MEDS ORDERED: Docusate Oral Soln 100 MG/10 ML UDC GTUBE SCH (21:00)
[2021-03-09] MEDS: Artificial Tears SOLN 15 ML BOTTLE BOTH EYES SCH ×7 (00:09→23:04)
[2021-03-09] MEDS: Piperacillin/Tazobactam 3.375 GM in 0.9 % Sodium Chloride Mini Bag 100 ML IVPB SCH ×2 (00:09→09:21)
[2021-03-09] MEDS: *HR* FentaNYL (PF) 100 MCG/2 ML VIAL IVP PRN ×4 (00:10→23:03)
[2021-03-09] MEDS: Ondansetron 4 MG/2 ML VIAL IVP PRN ×3 (00:52→17:11)
[2021-03-09] MEDS: Ipratropium/Albuterol Neb 3 ML IH SCH ×5 (04:52→20:16)
[2021-03-09] MEDS: Morphine Sulfate Oral CONC 10 MG/0.5 ML ORAL.SYG SL PRN ×3 (10:21→17:11)
[2021-03-09] MEDS: D5% in 0.45% NACL 1,000 ML IVC SCH (14:51)
[2021-03-09] MEDS: cefTRIAXone 1,000 MG in Water for inj. (sterile) 10 ML IVP SCH (14:52)
[2021-03-10] MEDS: Ipratropium/Albuterol Neb 3 ML IH SCH ×2 (00:25→04:10)
[2021-03-10] MEDS: Morphine Sulfate Oral CONC 10 MG/0.5 ML ORAL.SYG SL PRN (01:09)
[2021-03-10] MEDS: Ondansetron 4 MG/2 ML VIAL IVP PRN ×2 (01:15→15:41)
[2021-03-10] MEDS ORDERED: Ipratropium/Albuterol Neb 3 ML IH PRN (04:09)
[2021-03-10] MEDS: D5% in 0.45% NACL 1,000 ML IVC SCH ×3 (04:10→18:23)
[2021-03-10] MEDS: Artificial Tears SOLN 15 ML BOTTLE BOTH EYES SCH ×5 (04:20→20:15)
[2021-03-10] MEDS: *HR* Enoxaparin 40 MG/0.4 ML SYRINGE SQ SCH (05:18)
[2021-03-10] MEDS ORDERED: Naloxone 0.4 MG/ML INJ IVP PRN (07:51)
[2021-03-10] MEDS: cefTRIAXone 1,000 MG in Water for inj. (sterile) 10 ML IVP SCH (08:10)
[2021-03-10 08:46] LABS: Hematocrit 29.9 % (35.3-44.9); Hemoglobin 9.9 g/dL (11.5-15.4); Mean Corpuscular HGB Conc 33.1 g/dL (31.6-35.5); Mean Corpuscular Hemoglobin 30.5 pg (28.0-33.3); Mean Platelet Volume 9.3 fL (9.4-12.4); Platelet Count 445 K/mcL (140-400); Red Blood Count 3.25 M/mcL (3.82-4.97); Red Cell Distribution Width 13.3 % (11.5-14.5); White Blood Count 9.7 K/mcL (4.3-11.1)
[2021-03-10 08:54] LABS: INR 1.3
[2021-03-10 09:04] LABS: BUN/Creatinine Ratio 36 (6-26); Blood Urea Nitrogen 21 mg/dL (6-20); Calcium 8.9 mg/dL (8.6-10.3); Carbon Dioxide 27 mEq/L (23-29); Chloride 108 mEq/L (98-107); Glucose 160 mg/dL (70-105); Magnesium 1.8 mg/dL (1.6-2.6); Osmolality,Calculated 288 (280-300); Phosphorous 3.6 mg/dL (2.7-4.5); Potassium 3.3 mEq/L (3.5-5.1); Sodium 136 mEq/L (136-145); eGFR For African Americans > 60 (> 60); eGFR For Non-African Americans > 60 (> 60)
[2021-03-10] MEDS ORDERED: Acetaminophen IV 1,000 MG/100 ML BAG IVPB ONE (19:06)
[2021-03-10] MEDS: Scopolamine Patch 1.5 MG PATCH.TD72 TD SCH (20:13)
[2021-03-11] MEDS: Artificial Tears SOLN 15 ML BOTTLE BOTH EYES SCH ×6 (01:18→19:50)
[2021-03-11] MEDS: D5% in 0.45% NACL 1,000 ML IVC SCH ×2 (05:47→19:47)
[2021-03-11] MEDS: *HR* Enoxaparin 40 MG/0.4 ML SYRINGE SQ SCH (05:49)
[2021-03-11] MEDS: cefTRIAXone 1,000 MG in Water for inj. (sterile) 10 ML IVP SCH (09:19)
[2021-03-11] MEDS: *HR* LORazepam 2 MG/ML VIAL IVP PRN ×3 (09:19→20:15)
[2021-03-12] MEDS: *HR* LORazepam 2 MG/ML VIAL IVP PRN ×4 (00:22→19:20)
[2021-03-12] MEDS: Artificial Tears SOLN 15 ML BOTTLE BOTH EYES SCH ×6 (00:25→19:20)
[2021-03-12] MEDS: *HR* Enoxaparin 40 MG/0.4 ML SYRINGE SQ SCH (05:12)
[2021-03-12] MEDS: D5% in 0.45% NACL 1,000 ML IVC SCH ×2 (09:40→20:11)
[2021-03-12] MEDS: cefTRIAXone 1,000 MG in Water for inj. (sterile) 10 ML IVP SCH (09:41)
[2021-03-12] MEDS: Ondansetron 4 MG/2 ML VIAL IVP PRN (12:39)
[2021-03-13] MEDS: Artificial Tears SOLN 15 ML BOTTLE BOTH EYES SCH ×7 (00:37→23:45)
[2021-03-13] MEDS: *HR* LORazepam 2 MG/ML VIAL IVP PRN ×9 (01:44→22:49)
[2021-03-13 04:05] LABS: Hematocrit 33.2 % (35.3-44.9); Hemoglobin 10.9 g/dL (11.5-15.4); Mean Corpuscular HGB Conc 32.8 g/dL (31.6-35.5); Mean Corpuscular Hemoglobin 29.7 pg (28.0-33.3); Mean Corpuscular Volume 90.5 fL (83.0-100.0); Mean Platelet Volume 9.5 fL (9.4-12.4); Platelet Count 323 K/mcL (140-400); Red Blood Count 3.67 M/mcL (3.82-4.97); Red Cell Distribution Width 14.6 % (11.5-14.5); White Blood Count 6.8 K/mcL (4.3-11.1)
[2021-03-13 04:06] LABS: VBG HCO3 27 mEq/L (21-27); VBG PCO2 46 mmHg (41-51); VBG PH 7.37 pH Units (7.32-7.42); VBG PO2 158 mmHg (25-50)
[2021-03-13 04:13] LABS: INR 1.4; Prothrombin Time 15.8 Seconds (9.4-12.1)
[2021-03-13 04:25] LABS: BUN/Creatinine Ratio 27 (6-26); Blood Urea Nitrogen 18 mg/dL (6-20); Carbon Dioxide 26 mEq/L (23-29); Chloride 104 mEq/L (98-107); Glucose 140 mg/dL (70-105); Magnesium 1.9 mg/dL (1.6-2.6); Osmolality,Calculated 292 (280-300); Potassium 2.9 mEq/L (3.5-5.1); Sodium 139 mEq/L (136-145); eGFR For African Americans > 60 (> 60); eGFR For Non-African Americans > 60 (> 60)
[2021-03-13] MEDS: *HR* Enoxaparin 40 MG/0.4 ML SYRINGE SQ SCH ×2 (05:50→16:47)
[2021-03-13] MEDS: cefTRIAXone 1,000 MG in Water for inj. (sterile) 10 ML IVP SCH (07:29)
[2021-03-13] MEDS: D5% in 0.45% NACL 1,000 ML IVC SCH (15:15)
[2021-03-13] MEDS ORDERED: Furosemide 40 MG/4 ML VIAL IVP ONE ×2 (15:35)
[2021-03-13 17:21] LABS: Adenovirus Not Detected (Not Detect); Bordetella Pertussis Not Detected (Not Detect); Chlamydophila pneumoniae Not Detected (Not Detect); Coronavirus 229E Not Detected (Not Detect); Coronavirus HKU1 Not Detected (Not Detect); Coronavirus NL63 Not Detected (Not Detect); Coronavirus OC43 Not Detected (Not Detect); Human Metapneumovirus Not Detected (Not Detect); Human Rhinovirus/Enterovirus Not Detected (Not Detect); Influenza A Subtype 2009 H1 Not Detected (Not Detect); Influenza B Not Detected (Not Detect); Mycoplasma pneumoniae Not Detected (Not Detect); Parainfluenza Virus 1 Not Detected (Not Detect); Parainfluenza Virus 2 Not Detected (Not Detect); Parainfluenza Virus 3 Not Detected (Not Detect); Parainfluenza Virus 4 Not Detected (Not Detect); Respiratory Syncytial Virus Not Detected (Not Detect); SARS-CoV-2 Not Detected (Not Detect)
[2021-03-13] MEDS ORDERED: *HR* Metoprolol 5 MG/5 ML VIAL IVP ONE (20:00)
[2021-03-13] MEDS: Scopolamine Patch 1.5 MG PATCH.TD72 TD SCH (20:07)
[2021-03-13] MEDS ORDERED: *HR* Labetalol 20 MG/4 ML SYRINGE IVP ONE (21:28)
[2021-03-14] MEDS ORDERED: *HR* LORazepam 2 MG/ML VIAL IVP ONE (00:11)
[2021-03-14] MEDS ORDERED: Acetaminophen IV 1,000 MG/100 ML BAG IVPB ONE (00:37)
[2021-03-14] MEDS ORDERED: Morphine Sulfate 2 MG/ML SYRINGE IVP ONE (02:16)
[2021-03-14] MEDS: Artificial Tears SOLN 15 ML BOTTLE BOTH EYES SCH ×4 (03:30→16:03)
[2021-03-14] MEDS ORDERED: *HR* Metoprolol 5 MG/5 ML VIAL IVP ONE (03:32)
[2021-03-14] MEDS: *HR* LORazepam 2 MG/ML VIAL IVP PRN ×12 (03:36→23:56)
[2021-03-14] MEDS: *HR* Enoxaparin 40 MG/0.4 ML SYRINGE SQ SCH (05:35)
[2021-03-14 05:44] LABS: BUN/Creatinine Ratio 24 (6-26); Blood Urea Nitrogen 21 mg/dL (6-20); Calcium 9.9 mg/dL (8.6-10.3); Carbon Dioxide 22 mEq/L (23-29); Chloride 104 mEq/L (98-107); Glucose 130 mg/dL (70-105); Osmolality,Calculated 299 (280-300); Potassium 3.4 mEq/L (3.5-5.1); Sodium 142 mEq/L (136-145); eGFR For African Americans > 60 (> 60); eGFR For Non-African Americans > 60 (> 60)
[2021-03-14] MEDS: cefTRIAXone 1,000 MG in Water for inj. (sterile) 10 ML IVP SCH (07:33)
[2021-03-14] MEDS ORDERED: Piperacillin/Tazobactam 3.375 GM in 0.9 % Sodium Chloride Mini Bag 100 ML IVPB SCH (08:00)
[2021-03-14] MEDS ORDERED: Haloperidol Lactate 5 MG/ML VIAL IVP PRN (10:13)
[2021-03-14] MEDS ORDERED: Morphine Sulfate 2 MG/ML SYRINGE IVP PRN (10:13)
[2021-03-14] MEDS: *HR* FentaNYL (PF) 100 MCG/2 ML VIAL IVP PRN ×10 (10:37→22:49)
[2021-03-14 10:41] LABS: Bacteria,Urine Few per hpf (None-Few); Bilirubin,Urine Negative (Negative); Blood,Urine Large (Negative); Budding Yeast,Urine Few per hpf (None Seen); Clarity,Urine Ex.Turbid (Clear); Color,Urine Yellow (Yellow); Glucose,Urine (UA) Normal (Normal); Ketones,Urine 20 mg/dL (Negative); Leukocyte Esterase,Urine Small (Negative); Mucus,Urine Many per lpf (None-Few); Nitrite,Urine Negative (Negative); Protein,Urine 100 mg/dL (Neg-Trace); RBC,Urine TNTC per hpf (0-3); Specific Gravity,Urine > 1.030 (1.010-1.025); Squamous Epithelial Cell,Urine Few per hpf (None-Few); WBC,Urine 50-100 per hpf (0-3)
[2021-03-14 11:37] LABS: Basophils # 0.1 K/mcL (0.0-0.2); Basophils % 0.5 %; Eosinophils % 0.1 %; Hematocrit 39.3 % (35.3-44.9); Hemoglobin 12.9 g/dL (11.5-15.4); Immature Granulocytes % 0.4 % (0-4); Lymphocytes # 2.1 K/mcL (0.6-4.6); Lymphocytes % 19.5 %; Mean Corpuscular HGB Conc 32.8 g/dL (31.6-35.5); Mean Corpuscular Hemoglobin 30.4 pg (28.0-33.3); Mean Corpuscular Volume 92.5 fL (83.0-100.0); Monocytes # 1.8 K/mcL (0.0-1.3); Monocytes % 16.7 %; Platelet Count 490 K/mcL (140-400); Red Blood Count 4.25 M/mcL (3.82-4.97); Red Cell Distribution Width 15.1 % (11.5-14.5); Segmented Neutrophils % 62.8 %; White Blood Count 10.7 K/mcL (4.3-11.1)
[2021-03-14 12:05] LABS: Neutrophils # 6.7 K/mcL (1.6-8.9)
[2021-03-14] MEDS: Haloperidol Lactate 5 MG/ML VIAL IVP PRN ×7 (14:46→23:57)
[2021-03-14] MEDS: Acetaminophen IV 500 MG/50 ML BAG IVPB PRN (19:21)
[2021-03-15] MEDS: *HR* FentaNYL (PF) 100 MCG/2 ML VIAL IVP PRN ×4 (00:08→03:23)
[2021-03-15] MEDS: Artificial Tears SOLN 15 ML BOTTLE BOTH EYES SCH ×5 (00:15→12:06)
[2021-03-15] MEDS: *HR* LORazepam 2 MG/ML VIAL IVP PRN ×3 (00:57→03:22)
[2021-03-15] MEDS: Haloperidol Lactate 5 MG/ML VIAL IVP PRN ×2 (01:32→02:26)
[2021-03-15] MEDS: Acetaminophen IV 500 MG/50 ML BAG IVPB PRN (04:01)
[2021-03-15] MEDS ORDERED: *HR* HYDROmorphone (PF) 1 MG/ML SYRINGE IM ONE (04:42)
[2021-03-15] MEDS: *HR* LORazepam Oral Conc 2 MG/ML SL PRN ×3 (05:27→12:10)
[2021-03-15] MEDS: *HR* OxyCODONE Oral Soln 5 MG/5 ML UD.LIQ PO PRN ×2 (05:27→08:49)
[2021-03-15] MEDS: Haloperidol Oral Conc 10 MG/5 ML UDC PO SCH ×2 (06:06→12:10)
[2021-03-15 08:12] VITALS: BP 111/87
[2021-03-15] MEDS ORDERED: Acetaminophen 650 MG RECTAL SUPP RC PRN (08:17)
[2021-03-15] MEDS ORDERED: Atropine 1% Opth Drops 100 DROP/5 ML BOTTLE SL PRN (09:51)
[2021-03-15 11:30] VITALS: PULSE 196; TEMP 106.6; O2SAT 88
== END 2021-03-15 12:18 | disposition expired | DRG 720 ==
LOC: SUATTDRO 10:31 → ICNU 10:31 → 2NNU 03-04 02:40 → 2ANU 03-08 21:23
PROVIDERS: ADMIT Internal Medicine; ATTEND Family Medicine